=== PATIENT | female | born 1960 | race Hispanic/Latino ===

== ENCOUNTER 2021-06-06 02:30 | Inpatient (IN) | payer OTHER, SELFPAY ==
[2021-06-06] MEDS ORDERED: Dexamethasone 10 MG/ML VIAL ONE (03:14)
[2021-06-06] MEDS ORDERED: Ketorolac Tromethamine 30 MG/ML VIAL ONE (03:14)
[2021-06-06] MEDS ORDERED: Acetaminophen 500 MG TAB ONE (03:15)
[2021-06-06 03:30] LABS: #Monocytes 0.6 10x3/uL (0.0-1.1); #Neutrophils 5.2 10x3/uL (1.5-8.4); %Basophils 0.1 % (0.0-2.0); %Lymphocytes 13.8 % (18.0-47.0); %Monocytes 8.2 % (0.0-10.0); %Neutrophils 75.6 % (40.0-75.0); Hemoglobin 11.2 g/dL (12.0-15.5); Mean Corpuscular HGB CONC 33.6 g/dL (32.0-36.0); Mean Corpuscular Hemoglobin 30.9 pg (27.0-33.0); Mean Platelet Volume 12.6 fl (7.4-10.4); Platelet Count 156 10x3/uL (150-450); RBC Distribution Width 11.8 % (11.5-14.5); Red Blood Cell (RBC) Count 3.62 10x6/uL (3.90-5.03); White Blood Cell (WBC) Count 6.8 10x3/uL (3.5-10.5)
[2021-06-06 03:38] LABS: Actual Bicarbonate (HCO3v) 24 mEq/L (22-28); Base Excess -1.5 mEq/L (-2.0 to +3.0); Calcium, Ionized (venous) 1.01 mmol/L (1.16-1.32); Chloride (VBG) 98 mmol/L (98-106); Hemoglobin (Hb) 11.8 g/dL (11.7-16.0); Potassium (VBG) 4.94 mmol/L (3.70-5.30); Puncture Site Other Site; Sodium 128.1 mmol/L (133-146); pH (venous) 7.36 (7.32-7.43)
[2021-06-06 03:39] LABS: ALT (SGPT) 34 U/L (8-55); AST (SGOT) 73 U/L (5-34); Albumin 3.3 g/dL (3.4-4.8); Alkaline Phosphatase 125 U/L (40-110); Anion Gap 18 mmol/L (10-20); BUN (Urea Nitrogen) 35 mg/dL (9.8-20.1); Bilirubin, Total 0.9 mg/dL (0.2-1.2); CK (CPK) 206 U/L (29-168); Calc. Creatinine Clearance 0 mL/min (70-130); Calcium 8.2 mg/dL (7.8-10.44); Carbon Dioxide 20 mmol/L (23-31); Chloride 98 mmol/L (98-107); Globulin 3.2 g/dL (2.4-3.5); Glucose 253 mg/dL (80-115); Potassium 5.2 mmol/L (3.5-5.1); Protein, Total 6.5 g/dL (5.8-8.1); Sodium 131 mmol/L (136-145)
[2021-06-06 04:20] LABS: D-Dimer Test 0.83 mg/L FEU (0.19-0.50); PTT 26.6 sec (22.0-33.0)
[2021-06-06 04:46] LABS: SARS-CoV-2 NAA Rapid Test DETECTED (NotDetected)
[2021-06-06] MEDS ORDERED: Enoxaparin Sodium 40 MG/0.4 ML SYRINGE SC SCH ×2 (08:00→09:00)
[2021-06-06] MEDS ORDERED: Dextrose 50% Abboject 50 ML SYRINGE SLOW IVP PRN (08:25)
[2021-06-06] MEDS ORDERED: Dextrose 5% in Water 1,000 ML IV PRN (08:25)
[2021-06-06] MEDS ORDERED: Sodium Chloride 0.9% 500 ML IV SCH (08:30)
[2021-06-06] MEDS ORDERED: REMDESIVIR 200 MG in Sodium Chloride 0.9% 250 ML 210 ML IV SCH (08:30)
[2021-06-06] MEDS: Famotidine/PF 20 mg/2ml Vial SLOW IVP SCH (08:40)
[2021-06-06] MEDS: Thiamine 100 MG TAB PO SCH (08:41)
[2021-06-06] MEDS: Cholecalciferol 1,000 UNITS (25 MCG) TAB PO SCH (08:41)
[2021-06-06] MEDS: Zinc Sulfate 220 MG CAP PO SCH (08:41)
[2021-06-06] MEDS: Ascorbic Acid 500 mg Chewable Tablet PO SCH (08:44)
[2021-06-06] MEDS: HumaLOG 300 UNITS/3 ML VIAL SC PRN ×4 (08:55→21:39)
[2021-06-06] MEDS: Lantus 1000 UNITS/10 ML VIAL SC SCH (08:55)
[2021-06-06] MEDS: Aspirin 81 mg Enteric Coated Tablet PO SCH (08:57)
[2021-06-06] MEDS: Metoprolol Tartrate 25 MG TAB PO SCH ×2 (08:57→20:24)
[2021-06-06] MEDS: Atorvastatin Calcium 40 MG TAB PO SCH (08:57)
[2021-06-06] MEDS: Citalopram 20 MG TAB PO SCH (08:57)
[2021-06-06 08:58] LABS: Anion Gap 16 mmol/L (10-20); BUN (Urea Nitrogen) 37 mg/dL (9.8-20.1); Calc. Creatinine Clearance 63 mL/min (70-130); Calcium 8.3 mg/dL (7.8-10.44); Carbon Dioxide 19 mmol/L (23-31); Chloride 101 mmol/L (98-107); Glucose 259 mg/dL (80-115); Potassium 5.1 mmol/L (3.5-5.1); Sodium 131 mmol/L (136-145)
[2021-06-06 09:00] LABS: #Monocytes 0.6 10x3/uL (0.0-1.1); #Neutrophils 6.4 10x3/uL (1.5-8.4); %Basophils 0.2 % (0.0-2.0); %Lymphocytes 11.2 % (18.0-47.0); %Monocytes 7.8 % (0.0-10.0); %Neutrophils 78.8 % (40.0-75.0); Hemoglobin 11.2 g/dL (12.0-15.5); Mean Corpuscular HGB CONC 33.6 g/dL (32.0-36.0); Mean Corpuscular Volume 92.2 fl (81.6-98.3); Mean Platelet Volume 12.1 fl (7.4-10.4); Platelet Count 164 10x3/uL (150-450); RBC Distribution Width 11.9 % (11.5-14.5); Red Blood Cell (RBC) Count 3.61 10x6/uL (3.90-5.03); White Blood Cell (WBC) Count 8.1 10x3/uL (3.5-10.5)
[2021-06-06] MEDS ORDERED: Lisinopril 20 MG TAB PO SCH (09:00)
[2021-06-06] MEDS ORDERED: Ascorbic Acid 500 mg Chewable Tablet PO SCH (09:00)
[2021-06-07 05:16] LABS: #Monocytes 0.7 10x3/uL (0.0-1.1); #Neutrophils 10.2 10x3/uL (1.5-8.4); %Basophils 0.2 % (0.0-2.0); %Lymphocytes 9.6 % (18.0-47.0); %Monocytes 5.8 % (0.0-10.0); %Neutrophils 82.4 % (40.0-75.0); Mean Corpuscular HGB CONC 33.6 g/dL (32.0-36.0); Mean Corpuscular Hemoglobin 30.9 pg (27.0-33.0); Mean Platelet Volume 12.4 fl (7.4-10.4); Platelet Count 194 10x3/uL (150-450); RBC Distribution Width 11.8 % (11.5-14.5); Red Blood Cell (RBC) Count 3.88 10x6/uL (3.90-5.03); White Blood Cell (WBC) Count 12.4 10x3/uL (3.5-10.5)
[2021-06-07 05:30] LABS: Anion Gap 17 mmol/L (10-20); BUN (Urea Nitrogen) 40 mg/dL (9.8-20.1); Calc. Creatinine Clearance 74 mL/min (70-130); Calcium 8.8 mg/dL (7.8-10.44); Carbon Dioxide 17 mmol/L (23-31); Chloride 102 mmol/L (98-107); Glucose 233 mg/dL (80-115); Potassium 5.2 mmol/L (3.5-5.1); Sodium 131 mmol/L (136-145)
[2021-06-07] MEDS: HumaLOG 300 UNITS/3 ML VIAL SC PRN ×5 (05:55→22:00)
[2021-06-07] MEDS: Levothyroxine Sodium 125 MCG TAB PO SCH (07:09)
[2021-06-07] MEDS: Aspirin 81 mg Enteric Coated Tablet PO SCH (08:12)
[2021-06-07] MEDS: Atorvastatin Calcium 40 MG TAB PO SCH (08:12)
[2021-06-07] MEDS: Enoxaparin Sodium 40 MG/0.4 ML SYRINGE SC SCH (08:12)
[2021-06-07] MEDS: Thiamine 100 MG TAB PO SCH (08:13)
[2021-06-07] MEDS: Cholecalciferol 1,000 UNITS (25 MCG) TAB PO SCH (08:13)
[2021-06-07] MEDS: Metoprolol Tartrate 25 MG TAB PO SCH ×2 (08:13→19:30)
[2021-06-07] MEDS: Ascorbic Acid 500 mg Chewable Tablet PO SCH (08:13)
[2021-06-07] MEDS: Lantus 1000 UNITS/10 ML VIAL SC SCH (08:13)
[2021-06-07] MEDS: Citalopram 20 MG TAB PO SCH (08:13)
[2021-06-07] MEDS: Zinc Sulfate 220 MG CAP PO SCH (08:13)
[2021-06-07] MEDS: Famotidine/PF 20 mg/2ml Vial SLOW IVP SCH (08:13)
[2021-06-07] MEDS ORDERED: Dexamethasone 10 MG in Sodium Chloride 0.9% 50 ML IVPB SCH (09:00)
[2021-06-07] MEDS: Acetaminophen 325 MG TAB PO PRN (11:29)
[2021-06-07] MEDS ORDERED: guaiFENesin ER 600 MG TAB PO SCH (14:30)
[2021-06-07] MEDS: Benzonatate 100 MG CAP PO SCH ×2 (14:39→19:30)
[2021-06-07] MEDS: guaiFENesin ER 600 MG TAB PO SCH (19:30)
[2021-06-07] MEDS ORDERED: Zolpidem Tartrate 5 MG TAB PO PRN (20:27)
[2021-06-08] MEDS: Dexmedetomidine In 0.9 % NaCl 100 ML IVPB SCH (00:32)
[2021-06-08] MEDS: Levothyroxine Sodium 125 MCG TAB PO SCH (06:58)
[2021-06-08 07:48] LABS: #Monocytes 0.8 10x3/uL (0.0-1.1); #Neutrophils 9.9 10x3/uL (1.5-8.4); %Basophils 0.2 % (0.0-2.0); %Lymphocytes 8.1 % (18.0-47.0); %Monocytes 6.5 % (0.0-10.0); %Neutrophils 82.9 % (40.0-75.0); Hemoglobin 11.9 g/dL (12.0-15.5); Mean Corpuscular HGB CONC 33.3 g/dL (32.0-36.0); Mean Corpuscular Hemoglobin 30.7 pg (27.0-33.0); Mean Platelet Volume 11.9 fl (7.4-10.4); Platelet Count 234 10x3/uL (150-450); RBC Distribution Width 11.9 % (11.5-14.5); Red Blood Cell (RBC) Count 3.88 10x6/uL (3.90-5.03)
[2021-06-08 08:14] LABS: Anion Gap 16 mmol/L (10-20); BUN (Urea Nitrogen) 38 mg/dL (9.8-20.1); Calc. Creatinine Clearance 104 mL/min (70-130); Calcium 8.7 mg/dL (7.8-10.44); Carbon Dioxide 15 mmol/L (23-31); Chloride 106 mmol/L (98-107); Glucose 152 mg/dL (80-115); Potassium 5.2 mmol/L (3.5-5.1); Sodium 132 mmol/L (136-145)
[2021-06-08] MEDS: HumaLOG 300 UNITS/3 ML VIAL SC PRN ×4 (08:33→20:46)
[2021-06-08] MEDS: Thiamine 100 MG TAB PO SCH (09:00)
[2021-06-08] MEDS: Sodium Bicarbonate Tab 325 MG TAB PO SCH ×3 (09:00→20:46)
[2021-06-08] MEDS: Atorvastatin Calcium 40 MG TAB PO SCH (09:00)
[2021-06-08] MEDS: Metoprolol Tartrate 25 MG TAB PO SCH ×2 (09:00→20:46)
[2021-06-08] MEDS: guaiFENesin ER 600 MG TAB PO SCH ×2 (09:00→20:46)
[2021-06-08] MEDS: Aspirin 81 mg Enteric Coated Tablet PO SCH (09:00)
[2021-06-08] MEDS: Citalopram 20 MG TAB PO SCH (09:00)
[2021-06-08] MEDS: Zinc Sulfate 220 MG CAP PO SCH (09:00)
[2021-06-08] MEDS: Famotidine/PF 20 mg/2ml Vial SLOW IVP SCH (09:00)
[2021-06-08] MEDS: Ascorbic Acid 500 mg Chewable Tablet PO SCH (09:00)
[2021-06-08] MEDS: Benzonatate 100 MG CAP PO SCH ×3 (09:00→20:46)
[2021-06-08] MEDS: Lantus 1000 UNITS/10 ML VIAL SC SCH (09:00)
[2021-06-08] MEDS: Enoxaparin Sodium 40 MG/0.4 ML SYRINGE SC SCH (09:00)
[2021-06-08] MEDS: Cholecalciferol 1,000 UNITS (25 MCG) TAB PO SCH (09:00)
[2021-06-08 18:08] LABS: Anion Gap 15 mmol/L (10-20); BUN (Urea Nitrogen) 36 mg/dL (9.8-20.1); Calc. Creatinine Clearance 115 mL/min (70-130); Calcium 9.2 mg/dL (7.8-10.44); Carbon Dioxide 20 mmol/L (23-31); Glucose 250 mg/dL (80-115); Potassium 5.3 mmol/L (3.5-5.1); Sodium 135 mmol/L (136-145)
[2021-06-08 18:13] LABS: Chloride 105 mmol/L (98-107)
[2021-06-08] MEDS ORDERED: traZODone HCl 50 MG TAB PO PRN (22:09)
[2021-06-09] MEDS: Dexmedetomidine In 0.9 % NaCl 100 ML IVPB SCH (02:30)
[2021-06-09] MEDS: Levothyroxine Sodium 125 MCG TAB PO SCH (05:00)
[2021-06-09 08:43] LABS: #Monocytes 0.8 10x3/uL (0.0-1.1); #Neutrophils 9.4 10x3/uL (1.5-8.4); %Basophils 0.3 % (0.0-2.0); %Lymphocytes 7.5 % (18.0-47.0); %Monocytes 6.7 % (0.0-10.0); %Neutrophils 81.3 % (40.0-75.0); Hemoglobin 12.9 g/dL (12.0-15.5); Mean Corpuscular HGB CONC 34.3 g/dL (32.0-36.0); Mean Corpuscular Volume 90.4 fl (81.6-98.3); Mean Platelet Volume 11.9 fl (7.4-10.4); Platelet Count 248 10x3/uL (150-450); RBC Distribution Width 11.9 % (11.5-14.5); Red Blood Cell (RBC) Count 4.16 10x6/uL (3.90-5.03); White Blood Cell (WBC) Count 11.5 10x3/uL (3.5-10.5)
[2021-06-09 08:44] LABS: ALT (SGPT) 22 U/L (8-55); AST (SGOT) 40 U/L (5-34); Albumin 3.1 g/dL (3.4-4.8); Alkaline Phosphatase 106 U/L (40-110); Anion Gap 14 mmol/L (10-20); BUN (Urea Nitrogen) 35 mg/dL (9.8-20.1); Bilirubin, Total 0.6 mg/dL (0.2-1.2); CRP (Inflammatory) 3.08 mg/dL (= or < 0.5); Calc. Creatinine Clearance 121 mL/min (70-130); Carbon Dioxide 20 mmol/L (23-31); Chloride 106 mmol/L (98-107); Globulin 3.7 g/dL (2.4-3.5); Glucose 187 mg/dL (80-115); Magnesium 2.1 mg/dL (1.6-2.6); Potassium 4.8 mmol/L (3.5-5.1); Protein, Total 6.8 g/dL (5.8-8.1); Sodium 135 mmol/L (136-145)
[2021-06-09] MEDS: Enoxaparin Sodium 40 MG/0.4 ML SYRINGE SC SCH ×2 (08:47→20:41)
[2021-06-09] MEDS: guaiFENesin ER 600 MG TAB PO SCH ×2 (08:47→20:42)
[2021-06-09] MEDS: Cholecalciferol 1,000 UNITS (25 MCG) TAB PO SCH (08:47)
[2021-06-09] MEDS: Aspirin 81 mg Enteric Coated Tablet PO SCH (08:47)
[2021-06-09] MEDS: Famotidine/PF 20 mg/2ml Vial SLOW IVP SCH (08:47)
[2021-06-09] MEDS: Ascorbic Acid 500 mg Chewable Tablet PO SCH (08:47)
[2021-06-09] MEDS: Benzonatate 100 MG CAP PO SCH ×3 (08:48→20:42)
[2021-06-09] MEDS: Atorvastatin Calcium 40 MG TAB PO SCH (08:48)
[2021-06-09] MEDS: Metoprolol Tartrate 25 MG TAB PO SCH ×2 (08:48→20:42)
[2021-06-09] MEDS: Zinc Sulfate 220 MG CAP PO SCH (08:48)
[2021-06-09] MEDS: Sodium Bicarbonate Tab 325 MG TAB PO SCH (08:48)
[2021-06-09] MEDS: Citalopram 20 MG TAB PO SCH (08:48)
[2021-06-09] MEDS: Thiamine 100 MG TAB PO SCH (08:48)
[2021-06-09] MEDS: Lantus 1000 UNITS/10 ML VIAL SC SCH (08:52)
[2021-06-09 13:29] LABS: Actual Bicarbonate (HCO3a) 22.3 mEq/L (22-28); Base Excess (BEa) -1.4 mEq/L (-2.0 to +3.0); CO2 Tension 34.3 mmHg (35.0-45.0); Calcium, Ionized (arterial) 1.13 mmol/L (1.12-1.30); Carboxyhemoglobin (COHb) 0.2 gm% (0.0-3.0); O2 Tension (PaO2), arterial 55.7 mmHg (> 80.0); Potassium - ABG Lab 4.7 mmol/L (3.70-5.30); Puncture Site RRA; pH, Arterial 7.43 (7.35-7.45)
[2021-06-09 13:34] LABS: ALV-art Gradient 436.175 mmHg (0-20)
[2021-06-09] MEDS: Furosemide 40 MG/4 ML VIAL SLOW IVP SCH (15:37)
[2021-06-09] MEDS ORDERED: Ondansetron PF 4 MG/2 ML Vial IVP PRN (21:08)
[2021-06-10] MEDS: HumaLOG 300 UNITS/3 ML VIAL SC PRN ×3 (00:14→21:05)
[2021-06-10] MEDS: Acetaminophen 325 MG TAB PO PRN (03:46)
[2021-06-10] MEDS: Levothyroxine Sodium 125 MCG TAB PO SCH (05:58)
[2021-06-10] MEDS: Furosemide 40 MG/4 ML VIAL SLOW IVP SCH ×2 (06:02→14:24)
[2021-06-10 08:18] LABS: Actual Bicarbonate (HCO3a) 23.3 mEq/L (22-28); Base Excess (BEa) 0.7 mEq/L (-2.0 to +3.0); CO2 Tension 31.3 mmHg (35.0-45.0); Calcium, Ionized (arterial) 1.11 mmol/L (1.12-1.30); Carboxyhemoglobin (COHb) 0.3 gm% (0.0-3.0); Hemoglobin (Hb) 13.3 g/dL (12.0-16.0); O2 Tension (PaO2), arterial 54.5 mmHg (> 80.0); Potassium - ABG Lab 4.5 mmol/L (3.70-5.30); Puncture Site RRA; pH, Arterial 7.49 (7.35-7.45)
[2021-06-10 08:21] LABS: ALV-art Gradient 476.775 mmHg (0-20)
[2021-06-10] MEDS: Famotidine/PF 20 mg/2ml Vial SLOW IVP SCH (09:43)
[2021-06-10] MEDS: Metoprolol Tartrate 25 MG TAB PO SCH ×2 (09:43→20:59)
[2021-06-10] MEDS: Benzonatate 100 MG CAP PO SCH ×3 (09:43→20:59)
[2021-06-10] MEDS: Citalopram 20 MG TAB PO SCH (09:43)
[2021-06-10] MEDS: Ascorbic Acid 500 mg Chewable Tablet PO SCH (09:43)
[2021-06-10] MEDS: Aspirin 81 mg Enteric Coated Tablet PO SCH (09:43)
[2021-06-10] MEDS: Cholecalciferol 1,000 UNITS (25 MCG) TAB PO SCH (09:43)
[2021-06-10] MEDS: Atorvastatin Calcium 40 MG TAB PO SCH (09:43)
[2021-06-10] MEDS: Thiamine 100 MG TAB PO SCH (09:43)
[2021-06-10] MEDS: Enoxaparin Sodium 40 MG/0.4 ML SYRINGE SC SCH ×2 (09:44→21:06)
[2021-06-10] MEDS: Zinc Sulfate 220 MG CAP PO SCH (09:44)
[2021-06-10] MEDS: Lantus 1000 UNITS/10 ML VIAL SC SCH (09:47)
[2021-06-10] MEDS: guaiFENesin ER 600 MG TAB PO SCH ×2 (13:01→21:06)
[2021-06-10] MEDS ORDERED: Fentanyl CADD 100 ML ONE (16:09)
[2021-06-10] MEDS ORDERED: Propofol 1,000 MG/100 ML VIAL IV ONE (16:20)
[2021-06-10] MEDS ORDERED: Propofol BOLUS 1,000 MG/100 ML VIAL IV PRN (18:30)
[2021-06-10] MEDS ORDERED: Ventilator Sedation Protocol 1 EACH FS PRN (18:30)
[2021-06-10] MEDS ORDERED: DISCONTINUE PREVIOUS NARCOTIC PAIN MEDICATIONS AND BENZODIAZEPINES FS SCH (18:30)
[2021-06-10] MEDS ORDERED: Fentanyl BOLUS 250 ML IVPB PRN (18:30)
[2021-06-10] MEDS ORDERED: Morphine 2 MG/ML VIAL SLOW IVP PRN (18:30)
[2021-06-10 18:54] LABS: Actual Bicarbonate (HCO3a) 20.7 mEq/L (22-28); Base Excess (BEa) -4.1 mEq/L (-2.0 to +3.0); Calcium, Ionized (arterial) 1.12 mmol/L (1.12-1.30); Carboxyhemoglobin (COHb) 0.1 gm% (0.0-3.0); Hemoglobin (Hb) 12.8 g/dL (12.0-16.0); O2 Tension (PaO2), arterial 68.9 mmHg (> 80.0); Potassium - ABG Lab 4.2 mmol/L (3.70-5.30); Puncture Site LRA; pH, Arterial 7.37 (7.35-7.45)
[2021-06-10] MEDS ORDERED: Norepinephrine 8 MG/0.9% NS 0 ML ONE (19:28)
[2021-06-11] MEDS: HumaLOG 300 UNITS/3 ML VIAL SC PRN ×3 (00:30→17:12)
[2021-06-11] MEDS: Fentanyl CADD 100 ML IVPB SCH ×2 (02:38→14:45)
[2021-06-11] MEDS: Propofol 1,000 MG/100 ML VIAL IV PRN ×3 (02:39→20:48)
[2021-06-11] MEDS: Levothyroxine Sodium 125 MCG TAB PO SCH (05:57)
[2021-06-11] MEDS: Furosemide 40 MG/4 ML VIAL SLOW IVP SCH ×2 (05:57→15:42)
[2021-06-11 08:26] LABS: ALV-art Gradient 460.025 mmHg (0-20); Actual Bicarbonate (HCO3a) 21.8 mEq/L (22-28); Base Excess (BEa) -3.1 mEq/L (-2.0 to +3.0); CO2 Tension 38.7 mmHg (35.0-45.0); Calcium, Ionized (arterial) 1.12 mmol/L (1.12-1.30); Carboxyhemoglobin (COHb) 0.3 gm% (0.0-3.0); Hemoglobin (Hb) 13.6 g/dL (12.0-16.0); Potassium - ABG Lab 4.4 mmol/L (3.70-5.30); Puncture Site RRA; pH, Arterial 7.37 (7.35-7.45)
[2021-06-11] MEDS: Atorvastatin Calcium 40 MG TAB PO SCH (11:05)
[2021-06-11] MEDS: Citalopram 20 MG TAB PO SCH (11:05)
[2021-06-11] MEDS: Ascorbic Acid 500 mg Chewable Tablet PO SCH (11:05)
[2021-06-11] MEDS: Zinc Sulfate 220 MG CAP PO SCH (11:05)
[2021-06-11] MEDS: Famotidine/PF 20 mg/2ml Vial SLOW IVP SCH (11:05)
[2021-06-11] MEDS: Enoxaparin Sodium 40 MG/0.4 ML SYRINGE SC SCH ×2 (11:05→20:41)
[2021-06-11] MEDS: Thiamine 100 MG TAB PO SCH (11:06)
[2021-06-11] MEDS: guaiFENesin ER 600 MG TAB PO SCH ×2 (11:06→20:41)
[2021-06-11] MEDS: Lantus 1000 UNITS/10 ML VIAL SC SCH (11:07)
[2021-06-11] MEDS: Lorazepam 2 MG/ML VIAL SLOW IVP PRN (11:58)
[2021-06-11 12:57] LABS: #Basophils 0.1 10x3/uL (0.0-0.2); #Monocytes 0.6 10x3/uL (0.0-1.1); #Neutrophils 14.3 10x3/uL (1.5-8.4); %Basophils 0.4 % (0.0-2.0); %Lymphocytes 3.9 % (18.0-47.0); %Neutrophils 89.3 % (40.0-75.0); Hemoglobin 13.1 g/dL (12.0-15.5); Mean Corpuscular HGB CONC 32.4 g/dL (32.0-36.0); Mean Corpuscular Hemoglobin 30.5 pg (27.0-33.0); Mean Platelet Volume 11.4 fl (7.4-10.4); Platelet Count 274 10x3/uL (150-450); RBC Distribution Width 12.3 % (11.5-14.5)
[2021-06-11] MEDS: Benzonatate 100 MG CAP PO SCH ×3 (13:57→20:41)
[2021-06-11] MEDS: Aspirin 81 mg Enteric Coated Tablet PO SCH (13:57)
[2021-06-11] MEDS: Cholecalciferol 1,000 UNITS (25 MCG) TAB PO SCH (13:57)
[2021-06-11] MEDS: Metoprolol Tartrate 25 MG TAB PO SCH ×2 (13:58→20:41)
[2021-06-11] MEDS: Furosemide 20 MG/2 ML VIAL ONE ×2 (15:20→15:40)
[2021-06-11 19:06] LABS: ALT (SGPT) 22 U/L (8-55); AST (SGOT) 32 U/L (5-34); Albumin 3.1 g/dL (3.4-4.8); Alkaline Phosphatase 108 U/L (40-110); Anion Gap 18 mmol/L (10-20); BUN (Urea Nitrogen) 52 mg/dL (9.8-20.1); Bilirubin, Total 0.6 mg/dL (0.2-1.2); CRP (Inflammatory) 3.71 mg/dL (= or < 0.5); Calc. Creatinine Clearance 68 mL/min (70-130); Calcium 8.7 mg/dL (7.8-10.44); Carbon Dioxide 19 mmol/L (23-31); Chloride 105 mmol/L (98-107); Globulin 4.1 g/dL (2.4-3.5); Glucose 190 mg/dL (80-115); Potassium 5.2 mmol/L (3.5-5.1); Protein, Total 7.2 g/dL (5.8-8.1); Sodium 137 mmol/L (136-145)
[2021-06-12] MEDS: Fentanyl CADD 100 ML IVPB SCH ×2 (01:39→14:59)
[2021-06-12] MEDS: HumaLOG 300 UNITS/3 ML VIAL SC PRN ×6 (01:42→20:51)
[2021-06-12] MEDS: Propofol 1,000 MG/100 ML VIAL IV PRN ×3 (03:47→17:59)
[2021-06-12] MEDS: Levothyroxine Sodium 125 MCG TAB PO SCH (05:53)
[2021-06-12] MEDS: Furosemide 40 MG/4 ML VIAL SLOW IVP SCH (05:53)
[2021-06-12 07:07] LABS: Actual Bicarbonate (HCO3a) 22.7 mEq/L (22-28); Base Excess (BEa) -2.3 mEq/L (-2.0 to +3.0); CO2 Tension 39.9 mmHg (35.0-45.0); Calcium, Ionized (arterial) 1.12 mmol/L (1.12-1.30); Carboxyhemoglobin (COHb) 0.2 gm% (0.0-3.0); Hemoglobin (Hb) 13.4 g/dL (12.0-16.0); O2 Tension (PaO2), arterial 52.7 mmHg (> 80.0); Potassium - ABG Lab 4.6 mmol/L (3.70-5.30); Puncture Site LRA; pH, Arterial 7.37 (7.35-7.45)
[2021-06-12 07:11] LABS: ALV-art Gradient 432.175 mmHg (0-20)
[2021-06-12] MEDS: Enoxaparin Sodium 40 MG/0.4 ML SYRINGE SC SCH ×2 (08:45→20:09)
[2021-06-12] MEDS: Citalopram 20 MG TAB PO SCH (08:46)
[2021-06-12] MEDS: Atorvastatin Calcium 40 MG TAB PO SCH (08:46)
[2021-06-12] MEDS: Cholecalciferol 1,000 UNITS (25 MCG) TAB PO SCH (08:46)
[2021-06-12] MEDS: guaiFENesin ER 600 MG TAB PO SCH ×2 (08:46→20:11)
[2021-06-12] MEDS: Ascorbic Acid 500 mg Chewable Tablet PO SCH ×2 (08:46→08:52)
[2021-06-12] MEDS: Famotidine/PF 20 mg/2ml Vial SLOW IVP SCH (08:46)
[2021-06-12] MEDS: Lantus 1000 UNITS/10 ML VIAL SC SCH (08:47)
[2021-06-12] MEDS: Zinc Sulfate 220 MG CAP PO SCH (09:30)
[2021-06-12] MEDS: Thiamine 100 MG TAB PO SCH (09:30)
[2021-06-12] MEDS: Lorazepam 2 MG/ML VIAL SLOW IVP PRN ×2 (09:35→13:21)
[2021-06-12] MEDS ORDERED: Diazepam 5 MG TAB PO PRN (12:04)
[2021-06-12] MEDS: Aspirin 81 mg Enteric Coated Tablet PO SCH (14:56)
[2021-06-12] MEDS: Benzonatate 100 MG CAP PO SCH ×3 (14:56→20:10)
[2021-06-12] MEDS: Metoprolol Tartrate 25 MG TAB PO SCH ×2 (14:56→20:11)
[2021-06-13] MEDS: HumaLOG 300 UNITS/3 ML VIAL SC PRN ×6 (01:26→21:01)
[2021-06-13] MEDS: Propofol 1,000 MG/100 ML VIAL IV PRN ×2 (01:56→10:15)
[2021-06-13] MEDS: Levothyroxine Sodium 125 MCG TAB PO SCH (05:11)
[2021-06-13] MEDS: Enoxaparin Sodium 40 MG/0.4 ML SYRINGE SC SCH ×2 (07:58→21:00)
[2021-06-13] MEDS: Thiamine 100 MG TAB PO SCH (07:59)
[2021-06-13] MEDS: guaiFENesin ER 600 MG TAB PO SCH (07:59)
[2021-06-13] MEDS: Cholecalciferol 1,000 UNITS (25 MCG) TAB PO SCH (07:59)
[2021-06-13] MEDS: Ascorbic Acid 500 mg Chewable Tablet PO SCH (07:59)
[2021-06-13] MEDS: Atorvastatin Calcium 40 MG TAB PO SCH (08:00)
[2021-06-13] MEDS: Zinc Sulfate 220 MG CAP PO SCH (08:00)
[2021-06-13] MEDS: Famotidine/PF 20 mg/2ml Vial SLOW IVP SCH (08:00)
[2021-06-13] MEDS: Lantus 1000 UNITS/10 ML VIAL SC SCH (08:37)
[2021-06-13 08:49] LABS: Hemoglobin 11.8 g/dL (12.0-15.5); Mean Corpuscular HGB CONC 32.2 g/dL (32.0-36.0); Mean Corpuscular Hemoglobin 30.6 pg (27.0-33.0); Mean Corpuscular Volume 94.8 fl (81.6-98.3); Red Blood Cell (RBC) Count 3.86 10x6/uL (3.90-5.03); White Blood Cell (WBC) Count 25.1 10x3/uL (3.5-10.5)
[2021-06-13 08:50] LABS: Mean Platelet Volume 11.6 fl (7.4-10.4); Platelet Count 383 10x3/uL (150-450); RBC Distribution Width 12.5 % (11.5-14.5)
[2021-06-13 09:07] LABS: ALT (SGPT) 23 U/L (8-55); AST (SGOT) 24 U/L (5-34); Albumin 2.8 g/dL (3.4-4.8); Alkaline Phosphatase 105 U/L (40-110); Anion Gap 17 mmol/L (10-20); BUN (Urea Nitrogen) 63 mg/dL (9.8-20.1); Bilirubin, Total 0.4 mg/dL (0.2-1.2); CRP (Inflammatory) 8.25 mg/dL (= or < 0.5); Calc. Creatinine Clearance 77 mL/min (70-130); Calcium 8.8 mg/dL (7.8-10.44); Carbon Dioxide 20 mmol/L (23-31); Chloride 103 mmol/L (98-107); Globulin 3.8 g/dL (2.4-3.5); Glucose 330 mg/dL (80-115); Potassium 4.9 mmol/L (3.5-5.1); Protein, Total 6.6 g/dL (5.8-8.1); Sodium 135 mmol/L (136-145)
[2021-06-13 09:33] LABS: MDiff Complete? YES
[2021-06-13 09:36] LABS: Band 2 % (5-11); Lymphocytes 2 % (21-51); Metamyelocyte 1 % (0-0); Monocytes 3 % (0-10); Neutrophil 91 % (42-75); Reactive Lymphocytes 1 % (0-10)
[2021-06-13 09:38] LABS: Platelet Morphology Comment Appears Adequate; RBC Morphology Normal
[2021-06-13 11:07] LABS: Actual Bicarbonate (HCO3a) 19.8 mEq/L (22-28); Base Excess (BEa) -3.5 mEq/L (-2.0 to +3.0); CO2 Tension 30.7 mmHg (35.0-45.0); Calcium, Ionized (arterial) 1.16 mmol/L (1.12-1.30); Carboxyhemoglobin (COHb) 0.3 gm% (0.0-3.0); Hemoglobin (Hb) 12.8 g/dL (12.0-16.0); O2 Tension (PaO2), arterial 52.2 mmHg (> 80.0); Potassium - ABG Lab 4.8 mmol/L (3.70-5.30); Puncture Site Arterial Line; pH, Arterial 7.43 (7.35-7.45)
[2021-06-13 11:10] LABS: ALV-art Gradient 444.175 mmHg (0-20)
[2021-06-13] MEDS: Metoprolol Tartrate 25 MG TAB PO SCH (11:10)
[2021-06-13] MEDS: Benzonatate 100 MG CAP PO SCH ×2 (11:10→17:49)
[2021-06-13] MEDS: Polyethylene Glycol 3350 17 GM Packet PO PRN (11:28)
[2021-06-13] MEDS ORDERED: Furosemide 40 MG/4 ML VIAL SLOW IVP SCH (12:30)
[2021-06-13] MEDS ORDERED: Cefepime 1 GM in Sodium Chloride 0.9% 100 ML IVPB SCH (14:00)
[2021-06-13] MEDS ORDERED: VANCOMYCIN 2 GRAM/400 ML BAG 2 GM in Premix Bag 1 BAG IVPB SCH (14:00)
[2021-06-13] MEDS: Furosemide 40 MG/4 ML VIAL SLOW IVP SCH (14:26)
[2021-06-13] MEDS ORDERED: Aspirin Chewable 81 MG TAB PO SCH (14:30)
[2021-06-13] MEDS: Fentanyl CADD 100 ML IVPB SCH (14:39)
[2021-06-13] MEDS: Aspirin Chewable 81 MG TAB PO SCH (14:41)
[2021-06-13 19:14] LABS: Bilirubin Neg (Negative); Blood, Urine 25 (Negative); Clarity Cloudy (Clear); Glucose, Urine (Dipstick) Normal (Negative); Ketone, Urine Negative (Negative); Leukocyte 500 (Negative); Nitrite Negative (Negative); Protein, Urine (Dipstick) Negative (Neg-Trace); Specific Gravity, Urine 1.005 (1.002-1.036); Urobilinogen Normal mg/dL (Less than 2)
[2021-06-13 19:19] LABS: Urine Culture Reflex No No
[2021-06-13 19:43] LABS: Bacteria/HPF 1+ HPF (None Seen)
[2021-06-14] MEDS: Benzonatate 100 MG CAP PO SCH ×4 (00:04→22:19)
[2021-06-14] MEDS: Propofol 1,000 MG/100 ML VIAL IV PRN ×3 (00:04→23:07)
[2021-06-14] MEDS: guaiFENesin ER 600 MG TAB PO SCH ×3 (00:04→21:30)
[2021-06-14] MEDS: Metoprolol Tartrate 25 MG TAB PO SCH ×3 (00:05→22:18)
[2021-06-14] MEDS: HumaLOG 300 UNITS/3 ML VIAL SC PRN ×3 (00:22→08:05)
[2021-06-14] MEDS: Levothyroxine Sodium 125 MCG TAB PO SCH (05:00)
[2021-06-14] MEDS: Furosemide 40 MG/4 ML VIAL SLOW IVP SCH ×2 (05:00→14:54)
[2021-06-14] MEDS: Ascorbic Acid 500 mg Chewable Tablet PO SCH (08:01)
[2021-06-14] MEDS: Dexamethasone 20 MG/5 ML VIAL SLOW IVP SCH ×2 (08:01→20:46)
[2021-06-14] MEDS: Atorvastatin Calcium 40 MG TAB PO SCH (08:01)
[2021-06-14] MEDS: Zinc Sulfate 220 MG CAP PO SCH (08:02)
[2021-06-14] MEDS: Cholecalciferol 1,000 UNITS (25 MCG) TAB PO SCH (08:02)
[2021-06-14] MEDS: Thiamine 100 MG TAB PO SCH (08:02)
[2021-06-14] MEDS: Aspirin Chewable 81 MG TAB PO SCH (08:02)
[2021-06-14] MEDS: Polyethylene Glycol 3350 17 GM Packet PO PRN (08:02)
[2021-06-14] MEDS: Enoxaparin Sodium 40 MG/0.4 ML SYRINGE SC SCH ×2 (08:02→20:46)
[2021-06-14] MEDS: Famotidine/PF 20 mg/2ml Vial SLOW IVP SCH (08:02)
[2021-06-14 08:12] LABS: ALV-art Gradient 451.225 mmHg (0-20); Actual Bicarbonate (HCO3a) 25.1 mEq/L (22-28); Base Excess (BEa) 0.2 mEq/L (-2.0 to +3.0); CO2 Tension 41.9 mmHg (35.0-45.0); Carboxyhemoglobin (COHb) 0.2 gm% (0.0-3.0); Hemoglobin (Hb) 12.7 g/dL (12.0-16.0); O2 Tension (PaO2), arterial 66.8 mmHg (> 80.0); Potassium - ABG Lab 5.3 mmol/L (3.70-5.30); Puncture Site Arterial Line
[2021-06-14] MEDS ORDERED: Lantus 1000 UNITS/10 ML VIAL SC SCH (09:00)
[2021-06-14] MEDS ORDERED: Polyethylene Glycol 3350 17 GM Packet PER TUBE SCH (09:00)
[2021-06-14] MEDS ORDERED: HUMULIN R 100 UNITS in Sodium Chloride 0.9% 100 ML IVPB SCH (09:30)
[2021-06-14] MEDS: Lorazepam 2 MG/ML VIAL SLOW IVP PRN ×2 (09:37→19:07)
[2021-06-14 10:22] LABS: ALT (SGPT) 26 U/L (8-55); AST (SGOT) 30 U/L (5-34); Albumin 2.9 g/dL (3.4-4.8); Alkaline Phosphatase 133 U/L (40-110); Anion Gap 17 mmol/L (10-20); BUN (Urea Nitrogen) 67 mg/dL (9.8-20.1); Bilirubin, Total 0.5 mg/dL (0.2-1.2); CRP (Inflammatory) 12.19 mg/dL (= or < 0.5); Calc. Creatinine Clearance 82 mL/min (70-130); Calcium 9.5 mg/dL (7.8-10.44); Carbon Dioxide 20 mmol/L (23-31); Chloride 102 mmol/L (98-107); Globulin 4.1 g/dL (2.4-3.5); Glucose 432 mg/dL (80-115); Potassium 5.2 mmol/L (3.5-5.1); Sodium 134 mmol/L (136-145)
[2021-06-14 10:24] LABS: Hemoglobin 12.1 g/dL (12.0-15.5); Mean Corpuscular HGB CONC 32.1 g/dL (32.0-36.0); Mean Corpuscular Hemoglobin 30.6 pg (27.0-33.0); Mean Corpuscular Volume 95.2 fl (81.6-98.3); Mean Platelet Volume 11.7 fl (7.4-10.4); Platelet Count 397 10x3/uL (150-450); RBC Distribution Width 12.3 % (11.5-14.5); Red Blood Cell (RBC) Count 3.96 10x6/uL (3.90-5.03); White Blood Cell (WBC) Count 20.7 10x3/uL (3.5-10.5)
[2021-06-14 10:42] LABS: MDiff Complete? YES
[2021-06-14 11:25] LABS: Lymphocytes 4 % (21-51); Monocytes 4 % (0-10); Neutrophil 92 % (42-75); Platelet Morphology Comment Appears Adequate
[2021-06-14 11:26] LABS: RBC Morphology Normal
[2021-06-14] MEDS ORDERED: Cefepime 1 GM VIAL ONE (12:01)
[2021-06-14] MEDS ORDERED: Sodium Chloride 0.9% 100 ML ONE (12:01)
[2021-06-14] MEDS: Fentanyl CADD 100 ML IVPB SCH (12:02)
[2021-06-14] MEDS: INSULIN REGULAR IN 0.9 % NACL 100 UNIT in Premix Bag 1 BAG IVPB SCH ×2 (12:02→22:12)
[2021-06-14] MEDS ORDERED: Bisacodyl 10 MG SUPP PR PRN (12:46)
[2021-06-14] MEDS: Cefepime 1 GM in Sodium Chloride 0.9% 100 ML IVPB SCH (14:56)
[2021-06-14] MEDS: VANCOMYCIN 2 GRAM/400 ML BAG 2 GM in Premix Bag 1 BAG IVPB SCH (14:57)
[2021-06-14] MEDS ORDERED: Albumin 25% 100 ML ONE (16:39)
[2021-06-14] MEDS ORDERED: Albumin 25% 25 GM/100 ML BOT IVPB SCH (16:40)
[2021-06-14] MEDS ORDERED: Norepinephrine 8 MG/0.9% NS 250 ML ONE (16:48)
[2021-06-14] MEDS: Norepinephrine 8 MG/0.9% NS 250 ML IVPB SCH (17:04)
[2021-06-14] MEDS: Metoclopramide HCl 10 MG/2 ML VIAL IVP SCH (20:46)
[2021-06-15] MEDS: Metoclopramide HCl 10 MG/2 ML VIAL IVP SCH ×4 (03:02→21:04)
[2021-06-15 03:30] LABS: Hemoglobin 10.9 g/dL (12.0-15.5); Mean Corpuscular HGB CONC 32.2 g/dL (32.0-36.0); Mean Corpuscular Hemoglobin 30.4 pg (27.0-33.0); Mean Corpuscular Volume 94.2 fl (81.6-98.3); Platelet Count 375 10x3/uL (150-450); RBC Distribution Width 12.6 % (11.5-14.5); Red Blood Cell (RBC) Count 3.59 10x6/uL (3.90-5.03); White Blood Cell (WBC) Count 25.6 10x3/uL (3.5-10.5)
[2021-06-15 03:31] LABS: ALT (SGPT) 32 U/L (8-55); AST (SGOT) 36 U/L (5-34); Alkaline Phosphatase 105 U/L (40-110); Anion Gap 18 mmol/L (10-20); BUN (Urea Nitrogen) 78 mg/dL (9.8-20.1); Bilirubin, Total 0.4 mg/dL (0.2-1.2); Calc. Creatinine Clearance 70 mL/min (70-130); Calcium 9.5 mg/dL (7.8-10.44); Carbon Dioxide 21 mmol/L (23-31); Chloride 105 mmol/L (98-107); Globulin 3.9 g/dL (2.4-3.5); Glucose 167 mg/dL (80-115); Potassium 4.7 mmol/L (3.5-5.1); Protein, Total 6.9 g/dL (5.8-8.1); Sodium 139 mmol/L (136-145)
[2021-06-15 03:34] LABS: MDiff Complete? YES
[2021-06-15 03:43] LABS: Band 4 % (5-11); Lymphocytes 3 % (21-51); Metamyelocyte 1 % (0-0); Monocytes 6 % (0-10); Neutrophil 86 % (42-75)
[2021-06-15] MEDS: Propofol 1,000 MG/100 ML VIAL IV PRN ×3 (04:58→21:09)
[2021-06-15] MEDS: Levothyroxine Sodium 125 MCG TAB PO SCH (05:00)
[2021-06-15] MEDS: Furosemide 40 MG/4 ML VIAL SLOW IVP SCH ×2 (05:00→14:49)
[2021-06-15 08:27] LABS: Actual Bicarbonate (HCO3a) 20.6 mEq/L (22-28); Base Excess (BEa) -4.2 mEq/L (-2.0 to +3.0); CO2 Tension 36.7 mmHg (35.0-45.0); Calcium, Ionized (arterial) 1.19 mmol/L (1.12-1.30); Carboxyhemoglobin (COHb) 0.3 gm% (0.0-3.0); Hemoglobin (Hb) 11.9 g/dL (12.0-16.0); O2 Tension (PaO2), arterial 78.8 mmHg (> 80.0); Potassium - ABG Lab 4.5 mmol/L (3.70-5.30); Puncture Site Arterial Line; pH, Arterial 7.37 (7.35-7.45)
[2021-06-15 08:30] LABS: ALV-art Gradient 445.725 mmHg (0-20)
[2021-06-15] MEDS: Enoxaparin Sodium 40 MG/0.4 ML SYRINGE SC SCH ×2 (09:30→21:03)
[2021-06-15] MEDS: Polyethylene Glycol 3350 17 GM Packet PO PRN (09:31)
[2021-06-15] MEDS: Cholecalciferol 1,000 UNITS (25 MCG) TAB PO SCH (09:31)
[2021-06-15] MEDS: Benzonatate 100 MG CAP PO SCH ×3 (09:31→21:30)
[2021-06-15] MEDS: Atorvastatin Calcium 40 MG TAB PO SCH (09:31)
[2021-06-15] MEDS: Zinc Sulfate 220 MG CAP PO SCH (09:31)
[2021-06-15] MEDS: Dexamethasone 20 MG/5 ML VIAL SLOW IVP SCH ×2 (09:32→21:03)
[2021-06-15] MEDS: Famotidine/PF 20 mg/2ml Vial SLOW IVP SCH (09:32)
[2021-06-15] MEDS: Metoprolol Tartrate 25 MG TAB PO SCH ×2 (09:33→21:03)
[2021-06-15] MEDS: guaiFENesin ER 600 MG TAB PO SCH ×2 (09:34→21:06)
[2021-06-15] MEDS: Fentanyl CADD 100 ML IVPB SCH (09:52)
[2021-06-15] MEDS: INSULIN REGULAR IN 0.9 % NACL 100 UNIT in Premix Bag 1 BAG IVPB SCH (12:21)
[2021-06-15 13:28] LABS: Vancomycin, Trough 25.4 ug/mL
[2021-06-15] MEDS: Cefepime 1 GM in Sodium Chloride 0.9% 100 ML IVPB SCH (14:49)
[2021-06-15] MEDS: VANCOMYCIN 2 GRAM/400 ML BAG 2 GM in Premix Bag 1 BAG IVPB SCH (19:23)
[2021-06-15] MEDS: Aspirin 81 mg Enteric Coated Tablet PO SCH (19:43)
[2021-06-16] MEDS: Propofol 1,000 MG/100 ML VIAL IV PRN ×5 (01:24→21:54)
[2021-06-16] MEDS: Lorazepam 2 MG/ML VIAL SLOW IVP PRN (01:24)
[2021-06-16] MEDS: INSULIN REGULAR IN 0.9 % NACL 100 UNIT in Premix Bag 1 BAG IVPB SCH (01:49)
[2021-06-16 03:24] LABS: Hemoglobin 10.7 g/dL (12.0-15.5); Mean Corpuscular HGB CONC 31.8 g/dL (32.0-36.0); Mean Corpuscular Hemoglobin 30.7 pg (27.0-33.0); Mean Corpuscular Volume 96.8 fl (81.6-98.3); Mean Platelet Volume 11.3 fl (7.4-10.4); Platelet Count 374 10x3/uL (150-450); RBC Distribution Width 12.7 % (11.5-14.5); Red Blood Cell (RBC) Count 3.48 10x6/uL (3.90-5.03); White Blood Cell (WBC) Count 27.2 10x3/uL (3.5-10.5)
[2021-06-16 03:36] LABS: Vancomycin, Trough 19.6 ug/mL
[2021-06-16 03:39] LABS: ALT (SGPT) 28 U/L (8-55); AST (SGOT) 28 U/L (5-34); Albumin 2.9 g/dL (3.4-4.8); Alkaline Phosphatase 106 U/L (40-110); Anion Gap 19 mmol/L (10-20); BUN (Urea Nitrogen) 85 mg/dL (9.8-20.1); Bilirubin, Total 0.4 mg/dL (0.2-1.2); Calc. Creatinine Clearance 74 mL/min (70-130); Calcium 9.4 mg/dL (7.8-10.44); Carbon Dioxide 20 mmol/L (23-31); Chloride 106 mmol/L (98-107); Glucose 209 mg/dL (80-115); Potassium 4.6 mmol/L (3.5-5.1); Protein, Total 6.9 g/dL (5.8-8.1); Sodium 140 mmol/L (136-145)
[2021-06-16] MEDS: Metoclopramide HCl 10 MG/2 ML VIAL IVP SCH ×4 (03:48→20:36)
[2021-06-16] MEDS: Vancomycin 1.5 GRAM/300 ML BAG 1.5 GM in Premix Bag 1 BAG IVPB SCH (03:48)
[2021-06-16 05:25] LABS: Band 5 % (5-11); Lymphocytes 5 % (21-51); Metamyelocyte 1 % (0-0); Monocytes 2 % (0-10)
[2021-06-16] MEDS: Furosemide 40 MG/4 ML VIAL SLOW IVP SCH (05:25)
[2021-06-16] MEDS: Levothyroxine Sodium 125 MCG TAB PO SCH (05:25)
[2021-06-16 05:26] LABS: Neutrophil 87 % (42-75)
[2021-06-16 05:27] LABS: Large Platelets MODERATE; MDiff Complete? YES; Manual Diff?? YES; Platelet Morphology Comment Appears Adequate
[2021-06-16 05:28] LABS: RBC Morphology Normal
[2021-06-16] MEDS: Fentanyl CADD 100 ML IVPB SCH (07:59)
[2021-06-16] MEDS: Enoxaparin Sodium 40 MG/0.4 ML SYRINGE SC SCH ×2 (08:29→20:35)
[2021-06-16] MEDS: Polyethylene Glycol 3350 17 GM Packet PO PRN (08:29)
[2021-06-16] MEDS: Dexamethasone 20 MG/5 ML VIAL SLOW IVP SCH ×2 (08:30→20:35)
[2021-06-16] MEDS: Benzonatate 100 MG CAP PO SCH ×3 (08:30→19:35)
[2021-06-16] MEDS: Zinc Sulfate 220 MG CAP PO SCH (08:30)
[2021-06-16] MEDS: Thiamine 100 MG TAB PO SCH (08:30)
[2021-06-16] MEDS: Ascorbic Acid 500 mg Chewable Tablet PO SCH (08:30)
[2021-06-16] MEDS: Aspirin Chewable 81 MG TAB PO SCH (08:30)
[2021-06-16] MEDS: guaiFENesin ER 600 MG TAB PO SCH ×2 (08:30→20:36)
[2021-06-16] MEDS: Cholecalciferol 1,000 UNITS (25 MCG) TAB PO SCH (08:30)
[2021-06-16] MEDS: Atorvastatin Calcium 40 MG TAB PO SCH (08:30)
[2021-06-16] MEDS: Metoprolol Tartrate 25 MG TAB PO SCH ×2 (08:31→20:35)
[2021-06-16] MEDS: Famotidine/PF 20 mg/2ml Vial SLOW IVP SCH (08:31)
[2021-06-16 09:31] LABS: Actual Bicarbonate (HCO3a) 21.9 mEq/L (22-28); Base Excess (BEa) -3.9 mEq/L (-2.0 to +3.0); CO2 Tension 42.8 mmHg (35.0-45.0); Calcium, Ionized (arterial) 1.17 mmol/L (1.12-1.30); Carboxyhemoglobin (COHb) 0.3 gm% (0.0-3.0); Hemoglobin (Hb) 10.1 g/dL (12.0-16.0); O2 Tension (PaO2), arterial 69.1 mmHg (> 80.0); Potassium - ABG Lab 5.2 mmol/L (3.70-5.30); Puncture Site Arterial Line; pH, Arterial 7.33 (7.35-7.45)
[2021-06-16] MEDS: Bisacodyl 10 MG SUPP PR PRN ×2 (10:49→20:36)
[2021-06-16] MEDS: HUMULIN R 100 UNITS in Sodium Chloride 0.9% 100 ML IVPB SCH ×2 (12:07→19:45)
[2021-06-16] MEDS: Furosemide 100 MG/10 ML VIAL SLOW IVP SCH (13:29)
[2021-06-16] MEDS: Cefepime 1 GM in Sodium Chloride 0.9% 100 ML IVPB SCH (13:30)
[2021-06-17] MEDS: Propofol 1,000 MG/100 ML VIAL IV PRN ×5 (00:57→21:53)
[2021-06-17] MEDS: Metoclopramide HCl 10 MG/2 ML VIAL IVP SCH ×4 (04:01→21:53)
[2021-06-17] MEDS: Vancomycin 1.5 GRAM/300 ML BAG 1.5 GM in Premix Bag 1 BAG IVPB SCH (04:02)
[2021-06-17 04:51] LABS: ALT (SGPT) 28 U/L (8-55); AST (SGOT) 31 U/L (5-34); Albumin 2.8 g/dL (3.4-4.8); Alkaline Phosphatase 110 U/L (40-110); Anion Gap 18 mmol/L (10-20); BUN (Urea Nitrogen) 96 mg/dL (9.8-20.1); Bilirubin, Total 0.3 mg/dL (0.2-1.2); Calc. Creatinine Clearance 91 mL/min (70-130); Calcium 9.6 mg/dL (7.8-10.44); Carbon Dioxide 20 mmol/L (23-31); Chloride 108 mmol/L (98-107); Globulin 4.1 g/dL (2.4-3.5); Glucose 183 mg/dL (80-115); Hemoglobin 10.7 g/dL (12.0-15.5); Mean Corpuscular HGB CONC 31.9 g/dL (32.0-36.0); Mean Corpuscular Hemoglobin 30.5 pg (27.0-33.0); Mean Corpuscular Volume 95.4 fl (81.6-98.3); Mean Platelet Volume 11.8 fl (7.4-10.4); Platelet Count 370 10x3/uL (150-450); Potassium 4.7 mmol/L (3.5-5.1); Protein, Total 6.9 g/dL (5.8-8.1); RBC Distribution Width 12.7 % (11.5-14.5); Red Blood Cell (RBC) Count 3.51 10x6/uL (3.90-5.03); Sodium 141 mmol/L (136-145); White Blood Cell (WBC) Count 27.9 10x3/uL (3.5-10.5)
[2021-06-17] MEDS: Furosemide 100 MG/10 ML VIAL SLOW IVP SCH ×2 (05:58→14:26)
[2021-06-17 06:36] LABS: Band 8 % (5-11); Lymphocytes 4 % (21-51); Metamyelocyte 4 % (0-0); Monocytes 5 % (0-10)
[2021-06-17 06:37] LABS: Anisocytosis SLIGHT = 6-15 cells (100X) (0-5/hpf); Microcytosis SLIGHT = 6-15 cells (100X) (0-5/hpf); Myelocyte 1 % (0-0); Neutrophil 78 % (42-75)
[2021-06-17 06:38] LABS: Large Platelets MODERATE; Platelet Morphology Comment Appears Adequate
[2021-06-17 06:39] LABS: Platelet Clumps SLIGHT
[2021-06-17 06:40] LABS: MDiff Complete? YES; Manual Diff?? YES
[2021-06-17] MEDS: Levothyroxine Sodium 125 MCG TAB PO SCH (07:40)
[2021-06-17] MEDS: Famotidine/PF 20 mg/2ml Vial SLOW IVP SCH (08:00)
[2021-06-17] MEDS: Dexamethasone 20 MG/5 ML VIAL SLOW IVP SCH ×2 (08:00→21:53)
[2021-06-17] MEDS: Enoxaparin Sodium 40 MG/0.4 ML SYRINGE SC SCH ×2 (08:01→21:53)
[2021-06-17] MEDS: Zinc Sulfate 220 MG CAP PO SCH (08:02)
[2021-06-17] MEDS: Ascorbic Acid 500 mg Chewable Tablet PO SCH (08:02)
[2021-06-17] MEDS: Atorvastatin Calcium 40 MG TAB PO SCH (08:02)
[2021-06-17] MEDS: Metoprolol Tartrate 25 MG TAB PO SCH ×2 (08:02→21:54)
[2021-06-17] MEDS: Thiamine 100 MG TAB PO SCH (08:02)
[2021-06-17] MEDS: Cholecalciferol 1,000 UNITS (25 MCG) TAB PO SCH (08:02)
[2021-06-17] MEDS: Benzonatate 100 MG CAP PO SCH ×3 (08:02→23:56)
[2021-06-17] MEDS: guaiFENesin ER 600 MG TAB PO SCH (08:02)
[2021-06-17] MEDS: Aspirin Chewable 81 MG TAB PO SCH (08:03)
[2021-06-17] MEDS ORDERED: VANCOMYCIN 1.25 GM/250 ML BAG 1.25 GM in Premix Bag 1 BAG IVPB SCH (09:00)
[2021-06-17 09:02] LABS: Actual Bicarbonate (HCO3a) 24.9 mEq/L (22-28); Base Excess (BEa) -0.1 mEq/L (-2.0 to +3.0); CO2 Tension 41.9 mmHg (35.0-45.0); Calcium, Ionized (arterial) 1.23 mmol/L (1.12-1.30); Carboxyhemoglobin (COHb) 0.3 gm% (0.0-3.0); Hemoglobin (Hb) 11.8 g/dL (12.0-16.0); O2 Tension (PaO2), arterial 74.1 mmHg (> 80.0); Potassium - ABG Lab 5.4 mmol/L (3.70-5.30); Puncture Site Arterial Line; pH, Arterial 7.39 (7.35-7.45)
[2021-06-17 09:06] LABS: ALV-art Gradient 443.925 mmHg (0-20)
[2021-06-17] MEDS: Fentanyl CADD 100 ML IVPB SCH (10:30)
[2021-06-17] MEDS: HUMULIN R 100 UNITS in Sodium Chloride 0.9% 100 ML IVPB SCH ×3 (11:11→21:54)
[2021-06-17] MEDS: Cefepime 1 GM in Sodium Chloride 0.9% 100 ML IVPB SCH ×2 (14:25→23:56)
[2021-06-17] MEDS: guaiFENesin 100 MG/5 ML UDCUP PO SCH (21:53)
[2021-06-17] MEDS: Bisacodyl 10 MG SUPP PR PRN (21:53)
[2021-06-18] MEDS: Metoclopramide HCl 10 MG/2 ML VIAL IVP SCH ×4 (02:25→21:37)
[2021-06-18] MEDS: Propofol 1,000 MG/100 ML VIAL IV PRN ×6 (03:06→21:37)
[2021-06-18] MEDS: Levothyroxine Sodium 125 MCG TAB PO SCH (05:06)
[2021-06-18] MEDS: Furosemide 100 MG/10 ML VIAL SLOW IVP SCH ×2 (05:06→14:17)
[2021-06-18 06:10] LABS: ALT (SGPT) 30 U/L (8-55); AST (SGOT) 32 U/L (5-34); Albumin 2.9 g/dL (3.4-4.8); Alkaline Phosphatase 107 U/L (40-110); Anion Gap 17 mmol/L (10-20); BUN (Urea Nitrogen) 112 mg/dL (9.8-20.1); Bilirubin, Total 0.3 mg/dL (0.2-1.2); Calc. Creatinine Clearance 86 mL/min (70-130); Calcium 9.9 mg/dL (7.8-10.44); Carbon Dioxide 21 mmol/L (23-31); Chloride 110 mmol/L (98-107); Globulin 4.2 g/dL (2.4-3.5); Glucose 141 mg/dL (80-115); Potassium 5.1 mmol/L (3.5-5.1); Protein, Total 7.1 g/dL (5.8-8.1); Sodium 143 mmol/L (136-145)
[2021-06-18 06:11] LABS: Hemoglobin 10.9 g/dL (12.0-15.5); Mean Corpuscular HGB CONC 31.1 g/dL (32.0-36.0); Mean Corpuscular Hemoglobin 30.5 pg (27.0-33.0); Mean Corpuscular Volume 98.3 fl (81.6-98.3); Mean Platelet Volume 12.4 fl (7.4-10.4); Platelet Count 342 10x3/uL (150-450); RBC Distribution Width 13.1 % (11.5-14.5); Red Blood Cell (RBC) Count 3.57 10x6/uL (3.90-5.03); White Blood Cell (WBC) Count 31.2 10x3/uL (3.5-10.5)
[2021-06-18] MEDS: Famotidine/PF 20 mg/2ml Vial SLOW IVP SCH (08:00)
[2021-06-18] MEDS: Enoxaparin Sodium 40 MG/0.4 ML SYRINGE SC SCH ×2 (08:00→21:38)
[2021-06-18] MEDS: Atorvastatin Calcium 40 MG TAB PO SCH (08:01)
[2021-06-18] MEDS: Dexamethasone 20 MG/5 ML VIAL SLOW IVP SCH ×2 (08:01→21:38)
[2021-06-18] MEDS: Cholecalciferol 1,000 UNITS (25 MCG) TAB PO SCH (08:01)
[2021-06-18] MEDS: Ascorbic Acid 500 mg Chewable Tablet PO SCH (08:01)
[2021-06-18] MEDS: Aspirin Chewable 81 MG TAB PO SCH (08:01)
[2021-06-18] MEDS: Bisacodyl 10 MG SUPP PR PRN (08:04)
[2021-06-18 08:07] LABS: Actual Bicarbonate (HCO3a) 25.2 mEq/L (22-28); Base Excess (BEa) -0.2 mEq/L (-2.0 to +3.0); CO2 Tension 44.1 mmHg (35.0-45.0); Calcium, Ionized (arterial) 1.29 mmol/L (1.12-1.30); Hemoglobin (Hb) 11.7 g/dL (12.0-16.0); O2 Tension (PaO2), arterial 58.6 mmHg (> 80.0); Puncture Site Arterial Line; pH, Arterial 7.38 (7.35-7.45)
[2021-06-18 08:13] LABS: ALV-art Gradient 456.675 mmHg (0-20)
[2021-06-18 09:10] LABS: Band 1 % (5-11); Monocytes 3 % (0-10); Myelocyte 1 % (0-0)
[2021-06-18 09:11] LABS: MDiff Complete? YES
[2021-06-18 09:12] LABS: Neutrophil 95 % (42-75)
[2021-06-18 09:13] LABS: Hypochromia SLIGHT = 6-15 cells (100X) (0-5/hpf); Large Platelets SLIGHT; Platelet Morphology Comment Appears Adequate
[2021-06-18] MEDS: Zinc Sulfate 220 MG CAP PO SCH (09:14)
[2021-06-18] MEDS: Metoprolol Tartrate 25 MG TAB PO SCH ×3 (09:14→21:38)
[2021-06-18] MEDS: VANCOMYCIN 1.25 GM/250 ML BAG 1.25 GM in Premix Bag 1 BAG IVPB SCH (09:14)
[2021-06-18] MEDS: Thiamine 100 MG TAB PO SCH (09:14)
[2021-06-18] MEDS: Benzonatate 100 MG CAP PO SCH ×3 (09:15→19:49)
[2021-06-18] MEDS: guaiFENesin 100 MG/5 ML UDCUP PO SCH ×2 (09:19→21:37)
[2021-06-18] MEDS: Cefepime 1 GM in Sodium Chloride 0.9% 100 ML IVPB SCH (11:51)
[2021-06-18] MEDS: Fentanyl CADD 100 ML IVPB SCH (12:23)
[2021-06-18] MEDS ORDERED: HumaLOG 300 UNITS/3 ML VIAL SC PRN (16:38)
[2021-06-18] MEDS: HUMULIN R 100 UNITS in Sodium Chloride 0.9% 100 ML IVPB SCH ×2 (17:23→23:17)
[2021-06-18] MEDS ORDERED: Lantus 1000 UNITS/10 ML VIAL SC SCH (21:00)
[2021-06-19] MEDS: Propofol 1,000 MG/100 ML VIAL IV PRN ×5 (01:11→20:38)
[2021-06-19] MEDS: Cefepime 1 GM in Sodium Chloride 0.9% 100 ML IVPB SCH ×2 (01:11→12:09)
[2021-06-19 04:06] LABS: Calcium 10.1 mg/dL (7.8-10.44); Chloride 108 mmol/L (98-107); Potassium 6.2 mmol/L (3.5-5.1); Sodium 141 mmol/L (136-145)
[2021-06-19 04:10] LABS: Hemoglobin 10.9 g/dL (12.0-15.5); Mean Corpuscular HGB CONC 31.7 g/dL (32.0-36.0); Mean Corpuscular Hemoglobin 31.1 pg (27.0-33.0); Mean Platelet Volume 12.3 fl (7.4-10.4); Platelet Count 320 10x3/uL (150-450); RBC Distribution Width 12.9 % (11.5-14.5); Red Blood Cell (RBC) Count 3.51 10x6/uL (3.90-5.03); White Blood Cell (WBC) Count 30.1 10x3/uL (3.5-10.5)
[2021-06-19 04:30] LABS: Anion Gap 19 mmol/L (10-20); Calc. Creatinine Clearance 76 mL/min (70-130); Carbon Dioxide 20 mmol/L (23-31); Glucose 244 mg/dL (80-115)
[2021-06-19 04:54] LABS: BUN (Urea Nitrogen) 130 mg/dL (9.8-20.1)
[2021-06-19] MEDS: Levothyroxine Sodium 125 MCG TAB PO SCH (05:34)
[2021-06-19] MEDS: Metoclopramide HCl 10 MG/2 ML VIAL IVP SCH ×4 (05:34→20:18)
[2021-06-19] MEDS: Furosemide 100 MG/10 ML VIAL SLOW IVP SCH ×2 (05:34→14:13)
[2021-06-19 06:14] LABS: Band 18 % (5-11); Lymphocytes 1 % (21-51); Monocytes 7 % (0-10); Myelocyte 2 % (0-0); Neutrophil 72 % (42-75)
[2021-06-19 06:16] LABS: Large Platelets MODERATE
[2021-06-19 06:17] LABS: Platelet Clumps SLIGHT; Platelet Morphology Comment Appears Adequate
[2021-06-19 06:18] LABS: MDiff Complete? YES; Manual Diff?? YES; RBC Morphology Normal
[2021-06-19 07:15] LABS: Actual Bicarbonate (HCO3a) 21.7 mEq/L (22-28); Base Excess (BEa) -3.3 mEq/L (-2.0 to +3.0); CO2 Tension 38.8 mmHg (35.0-45.0); Calcium, Ionized (arterial) 1.26 mmol/L (1.12-1.30); Carboxyhemoglobin (COHb) 0.3 gm% (0.0-3.0); Hemoglobin (Hb) 11.5 g/dL (12.0-16.0); O2 Tension (PaO2), arterial 65.4 mmHg (> 80.0); Potassium - ABG Lab 5.1 mmol/L (3.70-5.30); Puncture Site Arterial Line; pH, Arterial 7.37 (7.35-7.45)
[2021-06-19] MEDS: guaiFENesin 100 MG/5 ML UDCUP PO SCH ×2 (07:40→20:18)
[2021-06-19] MEDS: Dexamethasone 20 MG/5 ML VIAL SLOW IVP SCH ×2 (07:41→20:18)
[2021-06-19] MEDS: HUMULIN R 100 UNITS in Sodium Chloride 0.9% 100 ML IVPB SCH ×2 (07:41→20:22)
[2021-06-19] MEDS: Aspirin Chewable 81 MG TAB PO SCH (07:41)
[2021-06-19] MEDS: Famotidine/PF 20 mg/2ml Vial SLOW IVP SCH (07:41)
[2021-06-19] MEDS: Enoxaparin Sodium 40 MG/0.4 ML SYRINGE SC SCH ×2 (07:41→20:18)
[2021-06-19] MEDS: Atorvastatin Calcium 40 MG TAB PO SCH (07:41)
[2021-06-19] MEDS: Thiamine 100 MG TAB PO SCH (07:42)
[2021-06-19] MEDS: Zinc Sulfate 220 MG CAP PO SCH (07:42)
[2021-06-19] MEDS: Ascorbic Acid 500 mg Chewable Tablet PO SCH (07:42)
[2021-06-19] MEDS: Cholecalciferol 1,000 UNITS (25 MCG) TAB PO SCH (07:42)
[2021-06-19] MEDS: Metoprolol Tartrate 25 MG TAB PO SCH ×3 (07:43→20:19)
[2021-06-19] MEDS: Benzonatate 100 MG CAP PO SCH ×3 (07:43→20:19)
[2021-06-19] MEDS: VANCOMYCIN 1.25 GM/250 ML BAG 1.25 GM in Premix Bag 1 BAG IVPB SCH ×2 (07:45→12:39)
[2021-06-19 08:46] LABS: Vancomycin, Trough 35.2 ug/mL
[2021-06-19 10:11] LABS: Potassium 5.6 mmol/L (3.5-5.1)
[2021-06-19] MEDS ORDERED: VANCOMYCIN 1.25 GM/250 ML BAG 1.25 GM in Premix Bag 1 BAG IVPB PRN (11:54)
[2021-06-19] MEDS: Fentanyl CADD 100 ML IVPB SCH (14:19)
[2021-06-19 16:45] VITALS: TEMP 97.5
[2021-06-20] MEDS: Propofol 1,000 MG/100 ML VIAL IV PRN ×7 (00:32→23:48)
[2021-06-20] MEDS: Cefepime 1 GM in Sodium Chloride 0.9% 100 ML IVPB SCH ×2 (00:35→14:00)
[2021-06-20] MEDS: Metoclopramide HCl 10 MG/2 ML VIAL IVP SCH ×4 (02:34→20:01)
[2021-06-20 03:46] LABS: Hemoglobin 11.2 g/dL (12.0-15.5); Mean Corpuscular HGB CONC 31.6 g/dL (32.0-36.0); Mean Corpuscular Hemoglobin 30.9 pg (27.0-33.0); Mean Corpuscular Volume 97.5 fl (81.6-98.3); Mean Platelet Volume 12.3 fl (7.4-10.4); Platelet Count 319 10x3/uL (150-450); RBC Distribution Width 12.8 % (11.5-14.5); Red Blood Cell (RBC) Count 3.63 10x6/uL (3.90-5.03); White Blood Cell (WBC) Count 27.4 10x3/uL (3.5-10.5)
[2021-06-20 04:14] LABS: ALV-art Gradient 463.675 mmHg (0-20); Actual Bicarbonate (HCO3a) 21.8 mEq/L (22-28); Base Excess (BEa) -3.3 mEq/L (-2.0 to +3.0); CO2 Tension 39.7 mmHg (35.0-45.0); Calcium, Ionized (arterial) 1.28 mmol/L (1.12-1.30); Carboxyhemoglobin (COHb) 0.3 gm% (0.0-3.0); O2 Tension (PaO2), arterial 57.1 mmHg (> 80.0); Potassium - ABG Lab 5.3 mmol/L (3.70-5.30); Puncture Site Arterial Line; pH, Arterial 7.36 (7.35-7.45)
[2021-06-20 04:39] LABS: Vancomycin, Random 25.5 ug/mL (See Comment)
[2021-06-20 04:43] LABS: Anion Gap 18 mmol/L (10-20); Calc. Creatinine Clearance 79 mL/min (70-130); Carbon Dioxide 19 mmol/L (23-31); Chloride 109 mmol/L (98-107); Glucose 255 mg/dL (80-115); Potassium 5.4 mmol/L (3.5-5.1); Sodium 141 mmol/L (136-145)
[2021-06-20 04:52] LABS: BUN (Urea Nitrogen) 139 mg/dL (9.8-20.1)
[2021-06-20] MEDS: Furosemide 100 MG/10 ML VIAL SLOW IVP SCH ×2 (05:12→14:43)
[2021-06-20] MEDS: Levothyroxine Sodium 125 MCG TAB PO SCH (05:13)
[2021-06-20 06:35] LABS: Band 6 % (5-11); Lymphocytes 1 % (21-51); Metamyelocyte 1 % (0-0); Monocytes 1 % (0-10); Myelocyte 2 % (0-0); Neutrophil 89 % (42-75)
[2021-06-20 06:36] LABS: Large Platelets SLIGHT; Platelet Clumps MODERATE; Platelet Morphology Comment Appears Adequate
[2021-06-20 06:37] LABS: MDiff Complete? YES; Manual Diff?? YES; RBC Morphology Normal
[2021-06-20] MEDS: Benzonatate 100 MG CAP PO SCH ×3 (07:58→19:51)
[2021-06-20] MEDS: HUMULIN R 100 UNITS in Sodium Chloride 0.9% 100 ML IVPB SCH (08:02)
[2021-06-20] MEDS: Metoprolol Tartrate 25 MG TAB PO SCH ×2 (08:53→20:01)
[2021-06-20] MEDS: Atorvastatin Calcium 40 MG TAB PO SCH (08:53)
[2021-06-20] MEDS: Aspirin Chewable 81 MG TAB PO SCH (08:53)
[2021-06-20] MEDS: Cholecalciferol 1,000 UNITS (25 MCG) TAB PO SCH (08:53)
[2021-06-20] MEDS: Zinc Sulfate 220 MG CAP PO SCH (08:53)
[2021-06-20] MEDS: Enoxaparin Sodium 40 MG/0.4 ML SYRINGE SC SCH ×2 (08:53→20:01)
[2021-06-20] MEDS: Thiamine 100 MG TAB PO SCH (08:53)
[2021-06-20] MEDS: Famotidine/PF 20 mg/2ml Vial SLOW IVP SCH (08:54)
[2021-06-20] MEDS: Dexamethasone 20 MG/5 ML VIAL SLOW IVP SCH ×2 (08:54→20:00)
[2021-06-20] MEDS: Ascorbic Acid 500 mg Chewable Tablet PO SCH (08:55)
[2021-06-20] MEDS ORDERED: VANCOMYCIN 1.25 GM/250 ML BAG 1.25 GM in Premix Bag 1 BAG IVPB SCH (09:00)
[2021-06-20] MEDS: guaiFENesin 100 MG/5 ML UDCUP PO SCH ×2 (09:14→20:00)
[2021-06-20] MEDS ORDERED: Dextrose 50% Abboject 50 ML SYRINGE SLOW IVP PRN (11:14)
[2021-06-20] MEDS ORDERED: Dextrose 5% in Water 1,000 ML IV PRN (11:14)
[2021-06-20] MEDS: Lantus 1000 UNITS/10 ML VIAL SC SCH (17:25)
[2021-06-20] MEDS: Fentanyl CADD 100 ML IVPB SCH (18:03)
[2021-06-20] MEDS: HumaLOG 300 UNITS/3 ML VIAL SC PRN (21:08)
[2021-06-21] MEDS: Cefepime 1 GM in Sodium Chloride 0.9% 100 ML IVPB SCH ×2 (00:20→13:00)
[2021-06-21] MEDS: HUMULIN R 100 UNITS in Sodium Chloride 0.9% 100 ML IVPB SCH ×2 (00:45→06:00)
[2021-06-21] MEDS: Metoclopramide HCl 10 MG/2 ML VIAL IVP SCH ×4 (03:28→20:32)
[2021-06-21] MEDS: Propofol 1,000 MG/100 ML VIAL IV PRN ×5 (03:28→21:26)
[2021-06-21 03:38] LABS: Vancomycin, Trough 19.5 ug/mL
[2021-06-21 03:40] LABS: Anion Gap 20 mmol/L (10-20); Calc. Creatinine Clearance 75 mL/min (70-130); Calcium 9.4 mg/dL (7.8-10.44); Carbon Dioxide 19 mmol/L (23-31); Chloride 113 mmol/L (98-107); Glucose 336 mg/dL (80-115); Potassium 5.8 mmol/L (3.5-5.1); Sodium 146 mmol/L (136-145)
[2021-06-21 03:51] LABS: BUN (Urea Nitrogen) 138 mg/dL (9.8-20.1)
[2021-06-21 04:02] LABS: Hemoglobin 11.5 g/dL (12.0-15.5); Mean Corpuscular HGB CONC 31.3 g/dL (32.0-36.0); Mean Corpuscular Hemoglobin 30.4 pg (27.0-33.0); Mean Corpuscular Volume 97.1 fl (81.6-98.3); Mean Platelet Volume 12.2 fl (7.4-10.4); Platelet Count 323 10x3/uL (150-450); Red Blood Cell (RBC) Count 3.78 10x6/uL (3.90-5.03); White Blood Cell (WBC) Count 21.5 10x3/uL (3.5-10.5)
[2021-06-21] MEDS: Bisacodyl 10 MG SUPP PR PRN (04:19)
[2021-06-21] MEDS: Furosemide 100 MG/10 ML VIAL SLOW IVP SCH ×2 (05:36→14:58)
[2021-06-21] MEDS: Levothyroxine Sodium 125 MCG TAB PO SCH (05:36)
[2021-06-21 07:02] LABS: Band 10 % (5-11); Lymphocytes 2 % (21-51); Metamyelocyte 2 % (0-0)
[2021-06-21 07:03] LABS: Monocytes 1 % (0-10); Neutrophil 85 % (42-75)
[2021-06-21 07:04] LABS: Large Platelets SLIGHT; Platelet Clumps SLIGHT; Platelet Morphology Comment Appears Adequate
[2021-06-21 07:05] LABS: MDiff Complete? YES; Manual Diff?? YES; RBC Morphology Normal
[2021-06-21] MEDS: Benzonatate 100 MG CAP PO SCH ×2 (07:38→20:33)
[2021-06-21] MEDS ORDERED: Fentanyl CADD 100 ML ONE (08:04)
[2021-06-21] MEDS ORDERED: Cholecalciferol 1,000 UNITS (25 MCG) TAB ONE (08:16)
[2021-06-21] MEDS: Enoxaparin Sodium 40 MG/0.4 ML SYRINGE SC SCH ×2 (08:23→20:33)
[2021-06-21] MEDS: Lantus 1000 UNITS/10 ML VIAL SC SCH ×2 (08:24→16:09)
[2021-06-21] MEDS: Dexamethasone 20 MG/5 ML VIAL SLOW IVP SCH ×2 (08:25→20:32)
[2021-06-21] MEDS: Famotidine/PF 20 mg/2ml Vial SLOW IVP SCH ×2 (08:25→20:32)
[2021-06-21] MEDS: guaiFENesin 100 MG/5 ML UDCUP PO SCH ×2 (08:26→20:32)
[2021-06-21] MEDS: Ascorbic Acid 500 mg Chewable Tablet PO SCH (08:26)
[2021-06-21] MEDS: Zinc Sulfate 220 MG CAP PO SCH (08:26)
[2021-06-21] MEDS: Aspirin Chewable 81 MG TAB PO SCH (08:27)
[2021-06-21] MEDS: Metoprolol Tartrate 25 MG TAB PO SCH ×2 (08:27→20:32)
[2021-06-21] MEDS: Cholecalciferol 1,000 UNITS (25 MCG) TAB PO SCH (08:27)
[2021-06-21] MEDS: Atorvastatin Calcium 40 MG TAB PO SCH (08:27)
[2021-06-21] MEDS: Thiamine 100 MG TAB PO SCH (08:27)
[2021-06-21 08:40] LABS: Actual Bicarbonate (HCO3a) 22.1 mEq/L (22-28); Base Excess (BEa) -3.3 mEq/L (-2.0 to +3.0); CO2 Tension 41.4 mmHg (35.0-45.0); Calcium, Ionized (arterial) 1.28 mmol/L (1.12-1.30); Hemoglobin (Hb) 12.2 g/dL (12.0-16.0); O2 Tension (PaO2), arterial 63.7 mmHg (> 80.0); Potassium - ABG Lab 5.6 mmol/L (3.70-5.30); Puncture Site Arterial Line; pH, Arterial 7.35 (7.35-7.45)
[2021-06-21] MEDS: HumaLOG 300 UNITS/3 ML VIAL SC PRN ×3 (11:59→23:31)
[2021-06-21 18:06] LABS: Anion Gap 18 mmol/L (10-20); Calc. Creatinine Clearance 58 mL/min (70-130); Calcium 9.8 mg/dL (7.8-10.44); Carbon Dioxide 20 mmol/L (23-31); Chloride 113 mmol/L (98-107); Glucose 392 mg/dL (80-115); Potassium 6.3 mmol/L (3.5-5.1); Sodium 145 mmol/L (136-145)
[2021-06-21 18:33] LABS: BUN (Urea Nitrogen) 155 mg/dL (9.8-20.1)
[2021-06-22] MEDS: Cefepime 1 GM in Sodium Chloride 0.9% 100 ML IVPB SCH ×2 (00:05→15:25)
[2021-06-22] MEDS: Propofol 1,000 MG/100 ML VIAL IV PRN ×7 (00:18→21:34)
[2021-06-22 00:59] LABS: Potassium 5.8 mmol/L (3.5-5.1)
[2021-06-22] MEDS ORDERED: Fentanyl CADD 100 ML ONE (02:04)
[2021-06-22 02:50] VITALS: BMI 43.1
[2021-06-22 04:29] LABS: Hemoglobin 11.2 g/dL (12.0-15.5); Mean Corpuscular HGB CONC 30.9 g/dL (32.0-36.0); Mean Corpuscular Hemoglobin 30.8 pg (27.0-33.0); Mean Corpuscular Volume 99.5 fl (81.6-98.3); Mean Platelet Volume 12.7 fl (7.4-10.4); Platelet Count 285 10x3/uL (150-450); RBC Distribution Width 13.1 % (11.5-14.5); Red Blood Cell (RBC) Count 3.64 10x6/uL (3.90-5.03)
[2021-06-22 04:51] LABS: Vancomycin, Random 13.9 ug/mL (See Comment)
[2021-06-22 04:53] LABS: Anion Gap 20 mmol/L (10-20); Calc. Creatinine Clearance 60 mL/min (70-130); Calcium 9.9 mg/dL (7.8-10.44); Carbon Dioxide 20 mmol/L (23-31); Chloride 113 mmol/L (98-107); Glucose 307 mg/dL (80-115); Potassium 6.5 mmol/L (3.5-5.1); Sodium 146 mmol/L (136-145)
[2021-06-22 05:02] LABS: BUN (Urea Nitrogen) 166 mg/dL (9.8-20.1)
[2021-06-22] MEDS: Furosemide 100 MG/10 ML VIAL SLOW IVP SCH (05:42)
[2021-06-22] MEDS: Levothyroxine Sodium 125 MCG TAB PO SCH (05:42)
[2021-06-22] MEDS ORDERED: Insulin Regular 300 UNITS/3 ML VIAL IVP SCH (06:00)
[2021-06-22] MEDS ORDERED: Calcium Gluconate 4.6 MEQ in Sodium Chloride 0.9% 100 ML IVPB SCH (06:00)
[2021-06-22] MEDS ORDERED: Albuterol Sulfate 2.5 mg/3 ml Neb NEB SCH (06:15)
[2021-06-22 06:37] LABS: Band 10 % (5-11); Monocytes 5 % (0-10)
[2021-06-22 06:38] LABS: Lymphocytes 1 % (21-51)
[2021-06-22 06:40] LABS: Metamyelocyte 1 % (0-0); Myelocyte 2 % (0-0); Neutrophil 81 % (42-75)
[2021-06-22 06:44] LABS: Anisocytosis SLIGHT = 6-15 cells (100X) (0-5/hpf); Macrocytosis SLIGHT = 6-15 cells (100X) (0-5/hpf)
[2021-06-22 06:45] LABS: Large Platelets MODERATE; MDiff Complete? YES; Platelet Morphology Comment Appears Adequate; Toxic Granulation SLIGHT
[2021-06-22 07:30] LABS: Base Excess (BEa) -4.9 mEq/L (-2.0 to +3.0); CO2 Tension 48.6 mmHg (35.0-45.0); Calcium, Ionized (arterial) 1.27 mmol/L (1.12-1.30); Carboxyhemoglobin (COHb) 0.3 gm% (0.0-3.0); Hemoglobin (Hb) 11.9 g/dL (12.0-16.0); O2 Tension (PaO2), arterial 58.8 mmHg (> 80.0); Potassium - ABG Lab 5.9 mmol/L (3.70-5.30); Puncture Site Arterial Line; pH, Arterial 7.27 (7.35-7.45)
[2021-06-22] MEDS: Lantus 1000 UNITS/10 ML VIAL SC SCH ×2 (08:24→15:26)
[2021-06-22] MEDS: HumaLOG 300 UNITS/3 ML VIAL SC PRN ×4 (08:25→21:39)
[2021-06-22] MEDS: guaiFENesin 100 MG/5 ML UDCUP PO SCH ×2 (08:40→21:34)
[2021-06-22] MEDS: Famotidine/PF 20 mg/2ml Vial SLOW IVP SCH ×2 (08:41→21:35)
[2021-06-22] MEDS: Dexamethasone 20 MG/5 ML VIAL SLOW IVP SCH ×2 (08:41→21:35)
[2021-06-22] MEDS: Aspirin Chewable 81 MG TAB PO SCH (08:42)
[2021-06-22] MEDS: Benzonatate 100 MG CAP PO SCH ×3 (08:42→21:29)
[2021-06-22] MEDS: Atorvastatin Calcium 40 MG TAB PO SCH (08:42)
[2021-06-22] MEDS: Zinc Sulfate 220 MG CAP PO SCH (08:42)
[2021-06-22] MEDS: Enoxaparin Sodium 40 MG/0.4 ML SYRINGE SC SCH ×2 (08:42→21:35)
[2021-06-22] MEDS: Cholecalciferol 1,000 UNITS (25 MCG) TAB PO SCH (08:42)
[2021-06-22] MEDS: Thiamine 100 MG TAB PO SCH (08:42)
[2021-06-22] MEDS: Metoprolol Tartrate 25 MG TAB PO SCH ×2 (08:42→21:38)
[2021-06-22] MEDS: Ascorbic Acid 500 mg Chewable Tablet PO SCH (08:42)
[2021-06-22 08:55] LABS: Actual Bicarbonate (HCO3a) 22.8 mEq/L (22-28); Base Excess (BEa) -4.9 mEq/L (-2.0 to +3.0); CO2 Tension 54.6 mmHg (35.0-45.0); Calcium, Ionized (arterial) 1.26 mmol/L (1.12-1.30); Carboxyhemoglobin (COHb) 0.3 gm% (0.0-3.0); Hemoglobin (Hb) 11.6 g/dL (12.0-16.0); O2 Tension (PaO2), arterial 73.7 mmHg (> 80.0); Potassium - ABG Lab 6.3 mmol/L (3.70-5.30); Puncture Site Arterial Line; pH, Arterial 7.24 (7.35-7.45)
[2021-06-22] MEDS ORDERED: Vancomycin HCl 1 GM in Sodium Chloride 0.9% 250 ML 250 ML IVPB SCH (09:00)
[2021-06-22 10:24] LABS: Potassium 6.5 mmol/L (3.5-5.1)
[2021-06-22 11:30] LABS: Hep B Surf Ag Non-Reactive S/CO (NonReactive)
[2021-06-22 11:32] LABS: HBSAg Index 0.15 S/CO (0-0.99)
[2021-06-22] MEDS: Norepinephrine 8 MG/0.9% NS 250 ML IVPB SCH (13:58)
[2021-06-22 19:43] LABS: Hep C IgG Ab Non-Reactive (NonReactive); Hep C Index 0.15 S/CO (0-0.79)
[2021-06-22 19:44] LABS: HBSAB Concentration Less than 8.00 mIU/mL; Hep B Core Total Ab Non-Reactive (NonReactive); Hep B Core Total Index 0.24 S/CO (0-0.79); Hep B Surf AB Non-Reactive (NonReactive)
[2021-06-22] MEDS ORDERED: Famotidine/PF 20 mg/2ml Vial ONE (21:34)
[2021-06-23] MEDS: Fentanyl CADD 100 ML IVPB SCH (01:14)
[2021-06-23] MEDS: HumaLOG 300 UNITS/3 ML VIAL SC PRN ×6 (01:50→21:52)
[2021-06-23] MEDS: Cefepime 1 GM in Sodium Chloride 0.9% 100 ML IVPB SCH ×2 (03:10→13:17)
[2021-06-23 04:45] LABS: Anion Gap 19 mmol/L (10-20); Calc. Creatinine Clearance 50 mL/min (70-130); Calcium 8.8 mg/dL (7.8-10.44); Carbon Dioxide 24 mmol/L (23-31); Chloride 105 mmol/L (98-107); Glucose 295 mg/dL (80-115); Potassium 5.7 mmol/L (3.5-5.1); Sodium 142 mmol/L (136-145)
[2021-06-23 04:53] LABS: Hemoglobin 10.4 g/dL (12.0-15.5); Mean Corpuscular HGB CONC 31.7 g/dL (32.0-36.0); Mean Corpuscular Hemoglobin 31.1 pg (27.0-33.0); Mean Corpuscular Volume 98.2 fl (81.6-98.3); Mean Platelet Volume 13.3 fl (7.4-10.4); Platelet Count 210 10x3/uL (150-450); RBC Distribution Width 13.2 % (11.5-14.5); Red Blood Cell (RBC) Count 3.34 10x6/uL (3.90-5.03); Vancomycin, Random 19.5 ug/mL (See Comment); White Blood Cell (WBC) Count 21.6 10x3/uL (3.5-10.5)
[2021-06-23 05:08] LABS: BUN (Urea Nitrogen) 127 mg/dL (9.8-20.1)
[2021-06-23 06:40] LABS: Band 9 % (5-11); Metamyelocyte 2 % (0-0); Monocytes 5 % (0-10)
[2021-06-23 06:41] LABS: Lymphocytes 1 % (21-51)
[2021-06-23 06:42] LABS: Myelocyte 2 % (0-0)
[2021-06-23 06:43] LABS: Large Platelets MODERATE; Neutrophil 81 % (42-75)
[2021-06-23 06:44] LABS: Platelet Morphology Comment Appears Adequate
[2021-06-23 06:46] LABS: Anisocytosis SLIGHT = 6-15 cells (100X) (0-5/hpf); MDiff Complete? YES; Microcytosis SLIGHT = 6-15 cells (100X) (0-5/hpf)
[2021-06-23 07:19] LABS: Actual Bicarbonate (HCO3a) 25.4 mEq/L (22-28); Base Excess (BEa) -0.5 mEq/L (-2.0 to +3.0); CO2 Tension 47.4 mmHg (35.0-45.0); Calcium, Ionized (arterial) 1.13 mmol/L (1.12-1.30); Carboxyhemoglobin (COHb) 0.3 gm% (0.0-3.0); Hemoglobin (Hb) 11.2 g/dL (12.0-16.0); O2 Tension (PaO2), arterial 77.2 mmHg (> 80.0); Potassium - ABG Lab 5.3 mmol/L (3.70-5.30); Puncture Site Arterial Line; pH, Arterial 7.35 (7.35-7.45)
[2021-06-23] MEDS: Propofol 1,000 MG/100 ML VIAL IV PRN ×5 (07:50→22:53)
[2021-06-23] MEDS: guaiFENesin 100 MG/5 ML UDCUP PO SCH ×2 (08:24→21:05)
[2021-06-23] MEDS: Cholecalciferol 1,000 UNITS (25 MCG) TAB PO SCH (08:25)
[2021-06-23] MEDS: Metoprolol Tartrate 25 MG TAB PO SCH ×2 (08:25→21:06)
[2021-06-23] MEDS: Famotidine/PF 20 mg/2ml Vial SLOW IVP SCH ×2 (08:25→21:07)
[2021-06-23] MEDS: Zinc Sulfate 220 MG CAP PO SCH (08:25)
[2021-06-23] MEDS: Atorvastatin Calcium 40 MG TAB PO SCH (08:25)
[2021-06-23] MEDS: Ascorbic Acid 500 mg Chewable Tablet PO SCH (08:25)
[2021-06-23] MEDS: Enoxaparin Sodium 40 MG/0.4 ML SYRINGE SC SCH ×2 (08:25→21:07)
[2021-06-23] MEDS: Benzonatate 100 MG CAP PO SCH ×3 (08:25→21:10)
[2021-06-23] MEDS: Dexamethasone 20 MG/5 ML VIAL SLOW IVP SCH (08:25)
[2021-06-23] MEDS: Aspirin Chewable 81 MG TAB PO SCH (08:25)
[2021-06-23] MEDS: Thiamine 100 MG TAB PO SCH (08:26)
[2021-06-23] MEDS: Lantus 1000 UNITS/10 ML VIAL SC SCH ×2 (08:27→16:47)
[2021-06-23] MEDS: Albumin 25% 25 GM/100 ML BOT IVPB PRN ×2 (09:56→11:21)
[2021-06-23] MEDS: Metoclopramide HCl 10 MG/2 ML VIAL IVP SCH ×2 (13:17→21:07)
[2021-06-23] MEDS ORDERED: Vancomycin 1 GM in Premix Bag 1 BAG IVPB SCH (15:15)
[2021-06-23] MEDS ORDERED: Vancomycin HCl 1.5 GM in Sodium Chloride 0.9% 250 ML 300 ML IVPB SCH (15:15)
[2021-06-23] MEDS ORDERED: Vancomycin HCl 1.25 GM in Sodium Chloride 0.9% 250 ML 250 ML IVPB SCH (15:15)
[2021-06-23] MEDS ORDERED: Vancomycin HCl 750 MG in Sodium Chloride 0.9% 250 ML 250 ML IVPB SCH (15:15)
[2021-06-23] MEDS ORDERED: HOLD VANCOMYCIN FOR LEVEL >20 FS SCH (15:15)
[2021-06-23] MEDS ORDERED: Lantus 1000 UNITS/10 ML VIAL SC SCH ×2 (16:50→21:00)
[2021-06-23] MEDS: Levothyroxine Sodium 125 MCG TAB PO SCH (21:01)
[2021-06-24] MEDS: Cefepime 1 GM in Sodium Chloride 0.9% 100 ML IVPB SCH (02:41)
[2021-06-24] MEDS: Propofol 1,000 MG/100 ML VIAL IV PRN (02:48)
[2021-06-24] MEDS: Fentanyl CADD 100 ML IVPB SCH (02:48)
[2021-06-24] MEDS: HumaLOG 300 UNITS/3 ML VIAL SC PRN (02:49)
[2021-06-24 05:01] LABS: Base Excess (BEa) -0.3 mEq/L (-2.0 to +3.0); CO2 Tension 49.8 mmHg (35.0-45.0); Calcium, Ionized (arterial) 1.04 mmol/L (1.12-1.30); Carboxyhemoglobin (COHb) 0.3 gm% (0.0-3.0); Hemoglobin (Hb) 10.8 g/dL (12.0-16.0); O2 Tension (PaO2), arterial 55.2 mmHg (> 80.0); Potassium - ABG Lab 4.4 mmol/L (3.70-5.30); Puncture Site Arterial Line; pH, Arterial 7.34 (7.35-7.45)
[2021-06-24 05:20] LABS: Anion Gap 21 mmol/L (10-20); BUN (Urea Nitrogen) 113 mg/dL (9.8-20.1); Calc. Creatinine Clearance 53 mL/min (70-130); Carbon Dioxide 23 mmol/L (23-31); Glucose 207 mg/dL (80-115); Potassium 4.4 mmol/L (3.5-5.1); Sodium 139 mmol/L (136-145)
[2021-06-24 05:26] LABS: Hemoglobin 10.1 g/dL (12.0-15.5); Mean Corpuscular HGB CONC 31.3 g/dL (32.0-36.0); Mean Corpuscular Hemoglobin 30.8 pg (27.0-33.0); Mean Corpuscular Volume 98.5 fl (81.6-98.3); Mean Platelet Volume 12.4 fl (7.4-10.4); Platelet Count 211 10x3/uL (150-450); Red Blood Cell (RBC) Count 3.28 10x6/uL (3.90-5.03); White Blood Cell (WBC) Count 22.3 10x3/uL (3.5-10.5)
[2021-06-24 05:35] LABS: Calcium 8.9 mg/dL (7.8-10.44); Chloride 99 mmol/L (98-107)
[2021-06-24 06:10] LABS: PTT 27.6 sec (22.0-33.0); Prothrombin Time 10.9 sec (9.5-12.1)
[2021-06-24 06:26] LABS: #Basophils 0.1 10x3/uL (0.0-0.2); #Eosinphils 0.3 10x3/uL (0.0-0.5); #Monocytes 0.7 10x3/uL (0.0-1.1); #Neutrophils 19.3 10x3/uL (1.5-8.4); %Basophils 0.4 % (0.0-2.0); %Lymphocytes 9.5 % (18.0-47.0); %Neutrophils 78.2 % (40.0-75.0); Hemoglobin 9.1 g/dL (12.0-15.5); Mean Corpuscular HGB CONC 30.5 g/dL (32.0-36.0); Mean Corpuscular Hemoglobin 30.3 pg (27.0-33.0); Mean Corpuscular Volume 99.3 fl (81.6-98.3); Mean Platelet Volume 12.9 fl (7.4-10.4); Platelet Count 227 10x3/uL (150-450); RBC Distribution Width 13.1 % (11.5-14.5); White Blood Cell (WBC) Count 24.7 10x3/uL (3.5-10.5)
[2021-06-24] MEDS ORDERED: Sodium Bicarb 50 MEQ/50 ML VIAL ONE (06:30)
[2021-06-24] MEDS ORDERED: Calcium Gluconate 4.6 MEQ in Sodium Chloride 0.9% 100 ML IVPB SCH (06:30)
[2021-06-24 06:43] LABS: Band 6 % (5-11); Eosinophils 1 % (0-10); Lymphocytes 10 % (21-51); Metamyelocyte 1 % (0-0); Monocytes 4 % (0-10); Myelocyte 3 % (0-0)
[2021-06-24 06:44] LABS: Anisocytosis SLIGHT = 6-15 cells (100X) (0-5/hpf); Macrocytosis SLIGHT = 6-15 cells (100X) (0-5/hpf); Platelet Morphology Comment Appears Adequate
[2021-06-24 06:45] LABS: Large Platelets MODERATE; Toxic Granulation SLIGHT
[2021-06-24] MEDS ORDERED: Sodium Bicarb 50 MEQ/50 ML VIAL IVP SCH (06:45)
[2021-06-24 06:46] LABS: MDiff Complete? YES; Neutrophil 75 % (42-75)
[2021-06-24] MEDS ORDERED: Protamine Sulfate 250 MG/25 ML VIAL SLOW IVP SCH (07:15)
[2021-06-24] MEDS ORDERED: Protamine Sulfate 50 MG/5 ML VIAL SLOW IVP SCH (07:15)
[2021-06-24 07:32] VITALS: BP 147/58
[2021-06-24 08:24] LABS: ALV-art Gradient 610.525 mmHg (0-20); Actual Bicarbonate (HCO3a) 18.5 mEq/L (22-28); CO2 Tension 47.1 mmHg (35.0-45.0); Carboxyhemoglobin (COHb) 0.5 gm% (0.0-3.0); Hemoglobin (Hb) 9.4 g/dL (12.0-16.0); O2 Tension (PaO2), arterial 43.6 mmHg (> 80.0); Potassium - ABG Lab 4.5 mmol/L (3.70-5.30); Puncture Site Arterial Line; pH, Arterial 7.21 (7.35-7.45)
[2021-06-24] MEDS: Metoprolol Tartrate 25 MG TAB PO SCH (08:28)
[2021-06-24] MEDS: Benzonatate 100 MG CAP PO SCH (08:28)
[2021-06-24] MEDS ORDERED: Phenylephrine 40 MG/NS 250 ML 250 ML ONE (08:55)
[2021-06-24] MEDS ORDERED: Dexamethasone 20 MG/5 ML VIAL SLOW IVP SCH (09:00)
[2021-06-24] MEDS: Metoclopramide HCl 10 MG/2 ML VIAL IVP SCH (09:09)
[2021-06-24] MEDS: Levothyroxine Sodium 125 MCG TAB PO SCH (09:09)
[2021-06-24] MEDS ORDERED: Phenylephrine 40 MG/NS 250 ML 40 MG in Premix Bag 1 BAG IVPB SCH (10:45)
== END 2021-06-24 12:05 | disposition expired | DRG 207 ==
LOC: CSHERS 02:30 → CSHICU 05:58
PROVIDERS: ADMIT Internal Medicine; ATTEND Family Medicine
PROC: 8E0ZXY6 Isolation (ICD-10-PCS; principal; 2021-06-06)
PROC: 3E033XZ Introduction of Vasopressor into Peripheral Vein, Percutaneous Approach (ICD-10-PCS; 2021-06-10)
PROC: 5A1955Z Respiratory Ventilation, Greater than 96 Consecutive Hours (ICD-10-PCS; 2021-06-10)
PROC: 0BH17EZ Insertion of Endotracheal Airway into Trachea, Via Natural or Artificial Opening (ICD-10-PCS; 2021-06-10)
PROC: 06HY33Z Insertion of Infusion Device into Lower Vein, Percutaneous Approach (ICD-10-PCS; 2021-06-22)
PROC: 5A1D70Z Performance of Urinary Filtration, Intermittent, Less than 6 Hours Per Day (ICD-10-PCS; 2021-06-22)
PROC: 0W9B30Z Drainage of Left Pleural Cavity with Drainage Device, Percutaneous Approach (ICD-10-PCS; 2021-06-24)
PROC: 0W9930Z Drainage of Right Pleural Cavity with Drainage Device, Percutaneous Approach (ICD-10-PCS; 2021-06-24)
DX: U07.1 COVID-19 (principal); J12.82 Pneumonia due to coronavirus disease 2019; J80 Acute respiratory distress syndrome; G93.41 Metabolic encephalopathy; J15.6 Pneumonia due to other Gram-negative bacteria; N17.9 Acute kidney failure, unspecified; Z68.41 Body mass index [BMI] 40.0-44.9, adult; E87.1 Hypo-osmolality and hyponatremia; E87.2 Acidosis; J93.9 Pneumothorax, unspecified; N18.4 Chronic kidney disease, stage 4 (severe); E78.5 Hyperlipidemia, unspecified; E03.9 Hypothyroidism, unspecified; Z51.5 Encounter for palliative care; Z66 Do not resuscitate; E11.22 Type 2 diabetes mellitus with diabetic chronic kidney disease; I12.9 Hypertensive chronic kidney disease with stage 1 through stage 4 chronic kidney disease, or unspecified chronic kidney disease; E11.65 Type 2 diabetes mellitus with hyperglycemia; E66.01 Morbid (severe) obesity due to excess calories; Z90.49 Acquired absence of other specified parts of digestive tract; Z90.710 Acquired absence of both cervix and uterus; Z89.421 Acquired absence of other right toe(s); E87.5 Hyperkalemia; D63.1 Anemia in chronic kidney disease; K59.00 Constipation, unspecified; J98.2 Interstitial emphysema; Z78.1 Physical restraint status; Z79.82 Long term (current) use of aspirin; Z79.890 Hormone replacement therapy; Z79.4 Long term (current) use of insulin; Z79.899 Other long term (current) drug therapy
CPT/HCPCS: 0240U; 36415; 36416; 36430; 36600; 71045; 80048; 80053; 80202; 81001; 82550; 82805; 83605; 83735; 83880; 84484; 85025; 85379; 85610; 85730; 86140; 86704; 86706; 86803; 86850; 86900; 86901; 87040; 87070; 87077; 87186; 87205; 87340; 89220; 90935; 93005; 93010; 94002; 94003; 94640; 94760; 94799; 96374; 96375; G0257; J0692; J1100; J1650; J1815; J1885; J1940; J2001; J2060; J2405; J2597; J2704; J2720; J2765; J3010; J3370; J3490; J7050; J7611; J7620; P9016; P9047; S0028